=== PATIENT | female | born 1950 | race Caucasian/White ===

== ENCOUNTER 2022-04-24 11:23 | Outpatient (REF) | payer MEDICARE, SELFPAY | END 2022-04-24 11:24 | disposition home or self-care (01) | LOC: HO.MANLDS 11:23 | PROVIDERS: Visit Provider Physician Assistant | DX: Z13.89 Encounter for screening for other disorder (principal) ==

== ENCOUNTER 2023-03-24 15:22 | Outpatient (REF) | payer MEDICARE, SELFPAY ==
[2023-03-25 05:18] LABS: Estimated Average Glucose 157 mg/dL; Hemoglobin A1c % 7.1 %
== END 2023-03-24 15:23 | disposition home or self-care (01) ==
LOC: HO.MANLDS 15:22
PROVIDERS: Visit Provider Internal Medicine
DX: E11.9 Type 2 diabetes mellitus without complications (principal)
CPT/HCPCS: 36415; 83036

== ENCOUNTER 2023-07-21 13:44 | Outpatient (REF) | payer MEDICARE, SELFPAY ==
[2023-07-21 17:34] LABS: Appearance Urine Clear; Color Urine Yellow; Glucose Urine UA 250 mg/dL (Negative); Leukocyte Esterase Urine Large (3+) (Negative); Nitrite Urine Negative (Negative); Specific Gravity - Urine 1.015 (1.005-1.025); UMIC TRIGGER UACC YES; Urine Blood Negative (Negative); Urine Ketones Negative (Negative); Urine Protein Negative (Neg-Trace)
[2023-07-21 17:36] LABS: Bacteria Urine None Seen (None Seen); Hyaline Casts Urine 0-2 /LPF (0-2); RBC Urine 0-2 /HPF (0-2); UACC Culture Trigger YES; WBC Urine 21-50 /HPF (0-5)
== END 2023-07-21 13:45 | disposition home or self-care (01) ==
LOC: HO.MANLDS 13:44
PROVIDERS: Visit Provider Physician Assistant
DX: N39.0 Urinary tract infection, site not specified (principal)
CPT/HCPCS: 81001; 87086

== ENCOUNTER 2024-03-01 16:10 | Outpatient (REF) | payer MEDICARE, SELFPAY | END 2024-03-01 16:11 | disposition home or self-care (01) | LOC: HO.MANLNP 16:10 | PROVIDERS: Visit Provider Physician Assistant | DX: L98.491 Non-pressure chronic ulcer of skin of other sites limited to breakdown of skin (principal) | CPT/HCPCS: 87070; 87077; 87205 ==

== ENCOUNTER 2025-09-19 14:32 | Outpatient (REF) | payer MEDICARE, SELFPAY ==
--- OUTSIDE RECORDS SUMMARY | 2024-05-16 13:00 | XMS_ITS | Encounter Summary ---
Author Organization [facility] Address [address] [place] [address] Phone Care Team Providers Care Principal Programmer Name Role Phone Gage Rivas Primary Care Provider [phone] Gage Rivas DO Unavailable Encounter Details Date Type Department Care Team (Late st Contact Info) Description 05/16/2024 2:00 PM EDT Hospital Encounter [facility] [address] [place] [address] Lydia Andrews FNP [address] [place] [address] [email or web address] Social History Tobacco Use Types Packs/Day Years Used Date Smoking Tobacco: Former Cigarettes Q uit: 1994 Smokeless Tobacco: Never Alcohol Use Standard Drinks/Week Comments Never 0 (1 standard drink = 0.6 oz pur e alcohol) Education Answer Date Recorded Are you interested in more education? Not on angel e 03/12/2023 Are you concerned about learning? Not on file 03/12/2023 No 03/12/2023 No 03/12/2023 Digital Access Answer Date Recorded No 04/12/2023 No 04/12/2023 Reliable internet access at home? Not on file 04/12/2023 Device with a working camera? Not on file Intimate Partner Violence Answer Date R ecorded Are you denied basic needs s uch as food, clothing, or medical care? No 08/22/2025 In the past 12 months have y ou been in a relationship with a person who hurts, threatens, or tries to control you? No 08/22/2025 Are you denied basic needs s uch as food, clothing, or medical care? No 08/22/2025 In the past 12 months have y ou been in a relationship with a person who hurts, threatens, or tries to control you? No 08/22/2025 Comments No Sex and Gender Information Value Date Recorded Sex Assigned at Female 05/29/2020 11:02 AM EDT Legal Sex Female 4:44 PM EST Gender Identity Female 05/29/2020 11:02 AM EDT Sexual Orientation Straight 05/29/2020 11 :02 AM EDT documented as of this encounter Plan of Treatment Upcoming Encounters Date Type Department Care Team ([facility] st Contact Info) Description 10/17/2025 2:15 PM EST Office Visit [facility] [address] [place] [address] Unknown, Unknown, Breanna Lee PA-C [address] [place] [address] [email or web address] documented as of this encounter Procedures Procedure Name Priority Date/Time Associated Diagnosis Comments XR ANKLE 3 OR MORE VIEWS (LEFT) Urgent/patient waiting 05/16/2024 2:05 PM EDT Closed avulsion fracture of lateral malleolus of left fibula, initial encounter documented in this encounter Results * XR ANKLE 3 OR MORE VIEWS (LEFT) (05/16/2024 2:05 PM EDT) Anatomical Region Laterality Modality Ankle Left Computed Radiogr aphy 05/16/2024 2:06 PM EDT Impressions 05/16/2024 2:07 PM EDT Tiny avulsion fracture of the tip of the lateral malleolus with overlying soft tissue swelling. Narrative 05/16/2024 2:07 PM EDT XR ANKLE 3 OR MORE VIEWS (LEFT) Referring clinician's provided indication for this examination in Epic: Trauma; rolled ankle 2 weeks ago, lateral swelling and echymosis, persistent pain COMPARISON: None. FINDINGS: Tiny avulsion fracture of the tip of the lateral malleolus with overlying soft tissue swelling. No other visualized fracture or malalignment. Diffuse osseous demineralization. Preserved joint spaces. Small plantar calcaneal enthesophyte. Procedure Note Sekou Montelongo MD - 05/16/2024 XR ANKLE 3 OR MORE VIEWS (LEFT) Referring clinician's provided indication for this examination in Epic:Trauma; rolled ankle 2 weeks ago, lateral swelling and echymosis,persistent pain COMPARISON: None. FINDINGS: Tiny avulsion fracture of the tip of the lateral malleolus with overlyingsoft tissue swelling. No other visualized fracture or malalignment.Diffuse osseous demineralization. Preserved joint spaces. Small plantarcalcaneal enthesophyte. IMPRESSION: Tiny avulsion fracture of the tip of the lateral malleolus with overlyingsoft tissue swelling. Lydia Andrews LICENSED BONDSMAN IMG XR LOWER EXTREMITY Venus l Result documented in this encounter Visit Diagnoses Not on filedocumented in this encounter Care Teams Principal Programmer Relationship Specialty Start Date End Date Gage Rivas DO PCP - General 08/30/17 Gage Rivas DO Historical LMR Provider 09/05/17 documented as of this encounter Additional Source Comments The information contained in this document represents components of the legal health record. It is not the complete legal health record.[facility]
--- OUTSIDE RECORDS SUMMARY | 2025-09-19 15:29 | XMS_ITS | Encounter Summary ---
Author Organization [facility] Address [address] [place] [address] Phone Care Team Providers Care Monogram And Letter Paster Name Role Phone Gage Rivas DO Primary Care Provider [phone] Gage Rivas DO Unavailable Encounter Details Date Type Department Care Team (Late st Contact Info) Description 09/19/2025 3:29 PM EST Hospital Encounter [facility], X-Ray - Kavitha [address] [place] [address] Gage Rivas DO [address] [facility] [address] [place], [place] [id number] Arrived Social History Tobacco Use Types Packs/Day Years [...] Upcoming Encounters Date Type Department Care Team ([facility] st Contact Info) Description 10/17/2025 2:15 PM EST Office Visit [facility] [address] [place] [address] Unknown, Unknown, Breanna Lee PA-C [address] [place] [address] [email or web address] Pending Results Name Type Priority Associated Diagnoses Date /Time XR Thoracic Spine Imaging Routine Sprain of thoracic region 09/19/2025 3:54 PM EST Scheduled Orders Name Type Priority Associated Diagnoses Orde r Schedule XR Thoracic Spine Imaging Routine Sprain of thoracic region As Needed for 1 Occurrences starting 09/19/2025 until 09/19/2025 documented as of this encounter Visit Diagnoses Diagnosis Sprain of thoracic region documented in this encounter Care Teams Monogram And Letter Paster Relationship Specialty Start Date End Date Gage Rivas DO PCP - General 08/30/17 Gage Rivas DO Historical LMR Provider 09/05/17 documented as of this encounter Additional Source Comments The information contained in this document represents components of the legal health record. It is not the complete legal health record.[facility]
--- OUTSIDE RECORDS SUMMARY | 2025-09-19 17:42 | XMS_ITS | Encounter Summary ---
Author Organization [facility] Address [address] [place] [address] Phone Care Team Providers Care Scallop Dredger Name Role Phone Gage Rivas DO Primary Care Provider [phone] Gage Rivas DO Unavailable Encounter Details Date Type Department Care Team (Late Contact Info) Description 08/04/2022 Procedure Pass [facility] Endoscopy Admitting Dept Virtual Department [address] [place] [address] Social History Tobacco Use Types Packs/Day Years Used Date Smoking Tobacco: Former Smokeless Tobacco: Never Comments:quit 40 years ago Alcohol Use Standard Drinks/Week Comments Never 0 (1 standard drink = 0.6 oz pur e alcohol) Comments No Sex and Gender Information Value Date Recorded Sex Assigned at Female 05/29/2020 11:02 AM EDT Legal Sex Female 4:44 PM EST Gender Identity Female 05/29/2020 11:02 AM EDT Sexual Orientation Straight 05/29/2020 11 :02 AM EDT documented as of this encounter Plan of Treatment Upcoming Encounters Date Type Department Care Team ([facility] Contact Info) Description 10/17/2025 2:15 PM EST Office Visit [facility] [address] [place] [address] Unknown, Unknown, Breanna Lee PA-C [address] [address] documented as of this encounter Visit Diagnoses Not on filedocumented in this encounter Care Teams Scallop Dredger Relationship Specialty Start Date End Date Gage Rivas DO [email or web address] PCP - General 08/30/17 JoseGage vasquez DO [email or web address] Historical LMR Provider 09/05/17 documented as of this encounter Additional Source Comments The information contained in this document represents components of the legal health record. It is not the complete legal health record.[facility]
--- OUTSIDE RECORDS SUMMARY | 2025-09-19 17:42 | XMS_ITS | Encounter Summary ---
Author Organization [facility] Address [address] [place] [address] Phone Care Team Providers Care Weigher And Crusher Name Role Phone JoseGage vasquez Primary Care Provider [phone] Rob Gage Babcock DO Unavailable Ngoc Wilson SENIOR RADIATION PROTECTION TECHNICIAN Unavailable [phone] Richelle Cloud MD Unavailable [phone] Elton Burton MD Unavailable Sherri Yu MD Unavailable [phone] Anna Castillo NP Unavailable [phone] Encounter Details Date Type Department Care Team (Late st Contact Info) Description 03/02/2018 Ancillary Orders [facility], X-Ray - [facility] [address] [place] [address] Mega Ocampo MD [address] [place] [address] [email or web address] Groin pain, right Social History Tobacco Use Types Packs/Day Years Used Date Smoking Tobacco: Never Assessed Comments Unknown Sex and Gender Information Value Date Recorded Sex Assigned at Female 05/29/2020 11:02 AM EDT Legal Sex Female 4:44 PM EST Gender Identity Female 05/29/2020 11:02 AM EDT Sexual Orientation Straight 05/29/2020 11 :02 AM EDT documented as of this encounter Plan of Treatment Upcoming Encounters Date Type Department Care Team (Late st Contact Info) Description 10/17/2025 2:15 PM EST Office Visit [facility] [address] [place] [address] Unknown, Unknown, Breanna Lee PA-C [address] [facility] [address] [place] [address] [email or web address] documented as of this encounter Results * XR PELVIS AP PLUS FROG OR OUTLET 2 VIEWS (03/02/2018 3:29 PM EDT) Anatomical Region Laterality Modality Pelvis Radiographic Kelin ging 03/02/2018 3:46 PM EDT Impressions 03/02/2018 3:48 PM EDT Minor acetabular spurring evident in the hips greater on the left than the right. Slight enthesopathy evident related to greater trochanters and iliac crests bilaterally. The sclerotic changes related to the symphysis pubis bilaterally. S/S: Right hip pain, no injury POS - [id number] Narrative 03/02/2018 3:48 PM EDT COMPARISON: CT abdomen and pelvis September 04, 2014 FINDINGS: An AP film of the pelvis is obtained. There are minimal degenerative changes in the hips with minor superior stable to spurring. No particular calcifications are seen. Enthesopathy is evident. There are surgical clips in the upper pelvis. Sclerotic and cystic change evident along the symphysis pubis noted. No acute fracture or bony displacement is evident. No prevertebral calcifications are seen. There are degenerative changes in the lower lumbar spine. The SI joints are unremarkable. Procedure Note Nico Burr MD - 03/02/2018 COMPARISON: CT abdomen and pelvis September 04, 2014 FINDINGS: An AP film of the pelvis is obtained. There are minimal degenerative changes in the hips with minor superiorstable to spurring. No particular calcifications are seen. Enthesopathy is evident. There are surgical clips in the upper pelvis. Sclerotic and cystic change evident along the symphysis pubis noted. No acute fracture or bony displacement is evident. No prevertebral calcifications are seen. There are degenerative changes in the lower lumbar spine. The SI joints are unremarkable. IMPRESSION: Minor acetabular spurring evident in the hips greater on the left than theright. Slight enthesopathy evident related to greater trochanters andiliac crests bilaterally. The sclerotic changes related to the symphysispubis bilaterally. S/S: Right hip pain, no injury POS - [id number] Mega Ocampo MD IMG XR PELVIS Final Res ult documented in this encounter Visit Diagnoses Diagnosis Groin pain, right Groin pain, right documented in this encounter Care Teams Weigher And Crusher Relationship Specialty Start Date End Date Gage Rivas DO PCP - General 08/30/17 Gage Rivas DO Historical LMR Provider 09/05/17 Ngoc Wilson NP [address] [place] [address] [email or web address] Historical LMR Provider 09/05/17 2 Richelle Cloud MD [address] [place] [address], [address] [place] [address] Historical LMR Provider 09/05/17 Elton Burton MD [address] [place] [address] [place] [address] Historical LMR Provider 09/05/17 11/22/21 Sherri Yu MD [address] [place] [address] Historical LMR Provider 09/05/17 2 Anna Castillo NP [address] [place] [address] Historical LMR Provider 09/05/17 2 documented as of this encounter Additional Source Comments The information contained in this document represents components of the legal health record. It is not the complete legal health record.[facility]
--- OUTSIDE RECORDS SUMMARY | 2025-09-19 17:42 | XMS_ITS | Encounter Summary ---
Author Organization [facility] Address [address] [place] [address] Phone Care Team Providers Care Deputy K 9 Name Role Phone JoseGage vasquez Yoko PIERRE Primary Care Provider [phone] Gage Rivas DO Unavailable Ngoc Wilson LEGAL RESEARCH ANALYST Unavailable Richelle Cloud MD Unavailable [phone] Elton Burton MD Unavailable [phone] Sherri Yu MD Unavailable [phone] Anna Castillo NP Unavailable [phone] Reason for Referral * MRI/CAT Scan - Closed Specialty Diagnoses / Procedures Referred By Tal davis Referred To Contact Radiology Diagnoses Personal history of colonic polyps Constipation, slow transit Diverticulosis large intestine w/o perforation or abscess w/o bleeding Lower abdominal pain, unspecified Nausea Procedures CT Abdomen/Pelvis Breanna Esparza PA Phone: tel: fax: Referral ID Status Reason Start Date Expiration Date Visits Re quested Visits Authorized [id number] Closed 09/26/2020 09/26/2021 1 1 Encounter Details Date Type Department Care Team (Latest Contact Info) Description 09/26/2020 Transcribe Orders [facility] Department [address] [place] [address] Breanna Esparza PA 10 [place] [address] Personal history of colonic polyps (Primary Dx); Constipation, slow transit; Diverticulosis large intestine w/o perforation or abscess w/o bleeding; Lower abdominal pain, unspecified; Nausea Social History Tobacco Use Types Packs/Day Years [...] Description 10/17/2025 2:15 PM EST Office Visit [facility] 10 [place] [address] Unknown, Unknown, Breanna Lee, YUDY-C [address] [place] [address] [email or web address] documented as of this encounter Results * CT ABDOMEN/PELVIS WITH CONTRAST (10/03/2020 3:06 PM EST) Anatomical Region Laterality Modality Abdomen, Pelvis Computed Tomogra phy 10/03/2020 3:46 PM EST Impressions 10/03/2020 4:03 PM EST No acute inflammatory changes or specific source of the pain. Diverticulosis without evidence of diverticulitis. Stable left adrenal nodule. Hysterectomy, partial colectomy and cholecystectomy. Small hiatal hernia. Moderate gastric diverticulum. Renal and hepatic cysts. Status post cholecystectomy. Narrative 10/03/2020 4:03 PM EST HISTORY: Abdominal pain, diverticulosis, nausea and vomiting COMPARISON: September 04, 2014 TECHNIQUE: After the administration of oral and intravenous contrast, multidetector CT is obtained from dome of the liver through the inferior pubic rami. Sagittal and coronal reformats generated. Automated exposure control utilized. FINDINGS: Lung bases: Mild elevation left hemidiaphragm. No pleural or pericardial effusion. Liver and spleen: Small cyst or hemangioma in the left hepatic lobe again noted. No worrisome hepatic or splenic masses. No organomegaly. Biliary tree and pancreas: Status post cholecystectomy. No biliary dilatation of concern. No pancreatic finding of concern. Adrenals and : Small upper lateral limb nodule in the left adrenal is unchanged. No worrisome adrenal masses. Lower pole left renal cyst now present, change from prior. No suspicious features by CT. This measures approximately 1.5 cm. Exophytic cyst off the lower pole of the right kidney also noted. No stones seen. Bladder unremarkable. Patient is status-post hysterectomy. There is some low density near the upper margin of the right vaginal fornix which is essentially unchanged and may be a right, chronic in nature. What is probably left ovary or post-operative change seen near the left vaginal fornix, also unchanged. Multiple calcifications in that region as well representing phleboliths and other calcification. Bowel: There is a small hiatal hernia. There is a fairly prominent gastric diverticulum again noted near the fundus posteriorly. No duodenal finding concern. Terminal ileum unremarkable. Appendix not visualized but no findings of appendicitis. There is colonic diverticulosis fairly diffusely of mild to moderate degree. Postsurgical changes seen at the sigmoid. No evidence of diverticulitis or colitis. Nodes: No adenopathy detected. Vascular: Moderate atherosclerotic changes. No findings of concern. Soft tissues: No ascites, inflammatory change or fluid collection. Bones: Scoliosis convex left. Mild disc height loss at multiple levels with some early facet degenerative change. No compression deformity or bony destructive lesions identified. Sclerosis across the symphysis pubis. Procedure Note Babak Vaughn MD - 10/03/2020 HISTORY: Abdominal pain, diverticulosis, nausea and vomiting COMPARISON: September 04, 2014 TECHNIQUE: After the administration of oral and intravenous contrast,multidetector CT is obtained from dome of the liver through the inferiorpubic rami. Sagittal and coronal reformats generated. Automated exposurecontrol utilized. FINDINGS: Lung bases: Mild elevation left hemidiaphragm. No pleural or pericardialeffusion. Liver and spleen: Small cyst or hemangioma in the left hepatic lobe againnoted. No worrisome hepatic or splenic masses. No organomegaly. Biliary tree and pancreas: Status post cholecystectomy. No biliarydilatation of concern. No pancreatic finding of concern. Adrenals and : Small upper lateral limb nodule in the left adrenal isunchanged. No worrisome adrenal masses. Lower pole left renal cyst nowpresent, change from prior. No suspicious features by CT. This measuresapproximately 1.5 cm. Exophytic cyst off the lower pole of the rightkidney also noted. No stones seen. Bladder unremarkable. Patient isstatus-post hysterectomy. There is some low density near the upper marginof the right vaginal fornix which is essentially unchanged and may be aright, chronic in nature. What is probably left ovary or post-operativechange seen near the left vaginal fornix, also unchanged. Multiplecalcifications in that region as well representing phleboliths and othercalcification. Bowel: There is a small hiatal hernia. There is a fairly prominent gastricdiverticulum again noted near the fundus posteriorly. No duodenal findingconcern. Terminal ileum unremarkable. Appendix not visualized but nofindings of appendicitis. There is colonic diverticulosis fairly diffuselyof mild to moderate degree. Postsurgical changes seen at the sigmoid. Noevidence of diverticulitis or colitis. Nodes: No adenopathy detected. Vascular: Moderate atherosclerotic changes. No findings of concern. Soft tissues: No ascites, inflammatory change or fluid collection. Bones: Scoliosis convex left. Mild disc height loss at multiple levelswith some early facet degenerative change. No compression deformity orbony destructive lesions identified. Sclerosis across the symphysispubis. IMPRESSION: No acute inflammatory changes or specific source of the pain.Diverticulosis without evidence of diverticulitis. Stable left adrenalnodule. Hysterectomy, partial colectomy and cholecystectomy. Small hiatalhernia. Moderate gastric diverticulum. Renal and hepatic cysts. Statuspost cholecystectomy. us Breanna JIMENES IMG CT ABD/PELVIS Final Res ult documented in this encounter Visit Diagnoses Diagnosis Personal history of colonic polyps- Primary Constipation, slow transit Slow transit constipation Diverticulosis large intestine w/o perforation or abscess w/o bleeding Lower abdominal pain, unspecified Nausea Nausea alone Personal history of colonic polyps Constipation, slow transit Slow transit constipation Diverticulosis large intestine w/o perforation or abscess w/o bleeding Lower abdominal pain, unspecified Nausea Nausea alone documented in this encounter Care Teams Deputy K 9 Relationship Specialty Start Date End Date Gage Rivas DO PCP - General 08/30/17 Gage Rivas DO Historical LMR Provider 09/05/17 Ngoc Wilson LEGAL RESEARCH ANALYST [address] [place] [address] [email or web address] Historical LMR Provider 09/05/17 2 Richelle Cloud MD [address] [address] Historical LMR Provider 09/05/17 Elton Burton MD 14 [facility] [address] [place] [address] Historical LMR Provider 09/05/17 11/22/21 Sherri Yu MD [address] [place] [id number] Historical LMR Provider 09/05/17 2 Anna Castillo NP [address] [place] [address] Historical LMR Provider 09/05/17 2 documented as of this encounter Additional Source Comments The information contained in this document represents components of the legal health record. It is not the complete legal health record.[facility]
--- OUTSIDE RECORDS SUMMARY | 2025-09-19 17:42 | XMS_ITS | Encounter Summary ---
Author Organization [facility] Address [address] [facility] [address] [place] [address] Phone Care Team Providers Care Center Machine Operator Name Role Phone JoseGage vasquez Primary Care Provider [phone] Gage Rivas DO Unavailable Ngoc Wilson NP Unavailable Richelle Cloud MD Unavailable Elton Burton MD Unavailable [phone] Sherri Yu MD Unavailable [phone] Anna Castillo NP Unavailable Encounter Details Date Type Department Care Team (Late Contact Info) Description 09/11/2020 Procedure Pass [facility] Endoscopy Admitting Dept Virtual Department [address] [place] [id number] Social History Tobacco Use Types Packs/Day Years [...] Encounters Date Type Department Care Team (Late Contact Info) Description 10/17/2025 2:15 PM EST Office Visit [facility] 10 [place] [address] Unknown, Unknown, Breanna Lee PA-C [address] [address] documented as of this encounter Visit Diagnoses Not on filedocumented in this encounter Care Teams Center Machine Operator Relationship Specialty Start Date End Date Gage Rivas DO PCP - General 08/30/17 Gage Rivas DO Historical LMR Provider 09/05/17 Ngoc Wilson NP [address] [place] [address] [email or web address] Historical LMR Provider 09/05/17 2 Richelle Cloud MD [address] [place] [address], [address] [place] [address] Historical LMR Provider 09/05/17 Elton Burton MD 14 [facility] [address] [place] [address] Historical LMR Provider 09/05/17 11/22/21 Sherri Yu MD [address] [place] [address] Historical LMR Provider 09/05/17 2 Anna Castillo NP [address] [place] [address] Historical LMR Provider 09/05/17 2 documented as of this encounter Additional Source Comments The information contained in this document represents components of the legal health record. It is not the complete legal health record.[facility]
--- OUTSIDE RECORDS SUMMARY | 2025-09-19 17:42 | XMS_ITS | Encounter Summary ---
Author Organization [facility] Address [address] [place] [address] Phone Care Team Providers Care Director Business Systems Name Role Phone Gage Rivas DO Primary Care Provider [phone] Gage Rivas DO Unavailable Encounter Details Date Type Department Care Team (Late st Contact Info) Description 09/19/2025 Ancillary Orders [facility], X-Ray - [place] [place] [address] Gage Rivas DO [address] [place] [address] [email or web address] Sprain of thoracic region (Primary Dx) Social History Tobacco Use Types Packs/Day Years [...] Upcoming Encounters Date Type Department Care Team ([facility] st Contact Info) Description 10/17/2025 2:15 PM EST Office Visit [facility] [address] [place] [address] Unknown, Unknown, Breanna Lee PA-C [address] [place] [address] [email or web address] Pending Results Name Type Priority Associated Diagnoses Date /Time XR Thoracic Spine Imaging Routine Sprain of thoracic region 09/19/2025 3:54 PM EST Scheduled Orders Name Type Priority Associated Diagnoses Orde r Schedule XR Thoracic Spine Imaging Routine Sprain of thoracic region Expected: 09/19/2025, Expires: 12/20/2025 documented as of this encounter Visit Diagnoses Diagnosis Sprain of thoracic region- Primary documented in this encounter Care Teams Director Business Systems Relationship Specialty Start Date End Date Gage Rivas DO PCP - General 08/30/17 Gage Rivas DO Historical LMR Provider 09/05/17 documented as of this encounter Additional Source Comments The information contained in this document represents components of the legal health record. It is not the complete legal health record.[facility]
--- OUTSIDE RECORDS SUMMARY | 2025-09-19 17:42 | XMS_ITS | Clinical Summary ---
Author Organization [facility] Address [address] [place] [address] Phone Care Team Providers Care Foundry Engineer Name Role Phone Rob, Analia A DO Primary Care Provider [phone] Bigda, Analia A DO Unavailable Allergies Active Allergy Reactions Criticality Noted Date Comments House Dust Mite Sneezing Medium 09/10/2020 Metformin Nausea Only Low 01/16/2020 Morphine 02/03/2019 Abdominal pain Sulfa (Sulfonamide Antibiotics) Hives Low 01/14 Medications dicyclomine (BENTYL) 10 MG capsule daily as needed. Act clark ALPRAZolam (XANAX) 1 MG tablet Take 1 mg by mouth 3 (three) times a day as needed. 020 Active cyclobenzaprine (FLEXERIL) 5 MG tablet Take 1 tablet (5 mg total) by mouth nightly at bedtime as needed (muscle spasm). 5 tablet 021 Active amLODIPine (NORVASC) 10 MG tablet 022 Active carvedilol (COREG) 12.5 MG tablet carvedilol 12.5 mg tablet Active blood-glucose meter (FREESTYLE FREEDOM LITE) kit FreeStyle Cornell Lite kit USE DIRECTED. Active lancets (FREESTYLE) 28 gauge Misc FreeStyle Lancets 28 gauge test once a day e11;65 Active FREESTYLE FREEDOM LITE meter kit as directed. 023 Active HYDROcodone-nahun taminophen (NORCO) 5-325 mg per tablet 07/03/2 023 Active SITagliptin phosphate (JANUVIA) 100 MG tablet Januvia 100 mg tablet TAKE 1 TABLET BY MOUTH EVERY DAY Active omeprazole (PRILOSEC) 40 MG capsule Active PREDNISONE ORAL Take 8 mg by mouth daily. Active predniSONE (DELTASONE) 10 MG tablet Active MOUNJARO 5 mg/0.5 mL PnIj INJECT 0.5 ML SUBCUTANEOUSLY WEEKLY Active glipiZIDE (GLUCOTROL XL) 10 MG 24 hr tablet Take 1 tablet by mouth daily. Active predniSONE (DELTASONE) 1 MG tablet TAKE 4 TABLETS BY MOUTH EVERY DAY FOR 30 DAYS Active ondansetron (ZOFRAN) 4 MG tablet Take 4 mg by mouth daily with breakfast. Once a day for 30 D - Active diclofenac sodium (VOLTAREN) 75 MG EC tablet Take 75 mg by mouth 2 (two) times a day with meals. Active azelastine (ASTELIN) 137 mcg (0.1 %) nasal spray by Nasal route 2 (two) times a day. Active doxepin (SILENOR) 6 mg tablet Take 1 tablet by mouth every morning. Active fluticasone propionate (FLONASE) 50 mcg/actuation nasal spray by Nasal route daily. Active montelukast (SINGULAIR) 10 mg tablet Take 1 tablet by mouth every morning. Active eszopiclone (LUNESTA) 3 mg tablet Take 3 mg by mouth nightly at bedtime. Active ibuprofen (ADVIL,MOTRIN) 600 MG tablet every 8 (eight) hours as needed. 2024 Discontinued magnesium citrate solution 2024 Discontinued oxyCODONE 5 MG immediate release tablet Take 1 tablet (5 mg total) by mouth every 6 (six) hours as needed. Partial fill ok 20 tablet 2024 Discontinued mirtazapine (REMERON) 15 MG tablet 2024 Discontinued rosuvastatin (CRESTOR) 5 MG tablet Take 1 tablet by mouth every morning. 2024 Discontinued semaglutide (OZEMPIC) 0.25 mg or 0.5 mg(2 mg/1.5 mL) subcutaneous injection pen 2024 Discontinued glimepiride (AMARYL) 4 MG tablet Take 1 tablet by mouth 2 (two) times a day. 023 2024 Discontinued zolpidem (AMBIEN) 10 mg tablet 2024 Discontinued traZODone (DESYREL) 100 MG tablet 2024 Discontinued eszopiclone (LUNESTA) 2 MG Tab Take 2 mg by mouth nightly at bedtime. 2024 Discontinued Active Problems No known active problems Encounters Date Type Department Care Team Description 09/19/2025 3:29 PM EST Hospital Encounter [facility], X-Ray - [address] [place] [address] Analia Patel DO Arrived 09/19/2025 Ancillary Orders [facility], X-Ray - [address] [place] [address] Analia Patel DO Sprain of thoracic region (Primary Dx) 08/22/2025 11:30 AM EDT - 08/22/2025 11:45 AM EDT Surgery [facility] Endoscopy Admitting Dept Virtual Department [address] [place] [phone] Juventino Thomas MD COLONOSCOPY 08/22/2025 11:03 AM EDT Anesthesia Event [facility] Endoscopy Admitting Dept Virtual Department [address] [place] [address] Tonya Swanson MD 08/22/2025 9:56 AM EDT - 08/22/2025 11:44 AM EDT Hospital Encounter [facility] Endoscopy Admitting Dept Virtual Department [address] [place] [address] Juventino Thomas MD Discharge Disposition: Home or Self Care 08/22/2025 Procedure Pass [facility] Endoscopy Admitting Dept Virtual Department [address] [place] [address] 08/15/2025 9:00 AM EDT Pre-Admission Testing Pre Procedure Evaluation [address] [place] [address] Juventino Thomas MD 07/05/2025 1:54 PM EDT - 07/05/2025 11:59 PM EDT Hospital Encounter [facility] [address] [place] [address] Analia Patel, DO Discharge Disposition: Home or Self Care 07/05/2025 Transcribe Orders [facility] [address] [place] [address] Analia Patel, DO Mixed hyperlipidemia (Primary Dx) from Last 3 Months Family History Medical History Relation Comments Breast cancer Mother Relation Status Comments Mother Social History Tobacco Use Types Packs/Day Years Used Date Smoking Tobacco: Former Cigarettes Q uit: 1994 Smokeless Tobacco: Never Tobacco Cessation:Counseling Given: Not Answered Alcohol Use Standard Drinks/Week Comments Never 0 [...] Orientation Straight 05/29/2020 11 :02 AM EDT Last Filed Vital Signs Vital Sign Reading Time Taken Comments Blood Pressure 136/70 08/22/2025 11:35 AM EDT Pulse 76 08/22/2025 11:35 AM EDT Temperature 36 C (96.8 F) 08/22/2025 11:20 AM EDT Respiratory Rate 17 08/22/2025 11:35 AM EDT Oxygen Saturation 97% 08/22/2025 11:35 AM EDT Inhaled Oxygen Concentration - - Weight 60.8 kg (134 lb) 08/15/2025 11:13 AM EDT Height 154.9 cm (5' 1 ) 08/15/2025 11:13 AM EDT Body Mass Index 25.32 08/15/2025 11:13 AM EDT Plan of Treatment Upcoming Encounters Date Type Department Care Team ([facility] st Contact Info) Description 10/17/2025 2:15 PM EST Office Visit [facility] [address] [place] [address] Unknown, Unknown, Breanna Lee PA-C [address] [place] [address] [email or web address] Health Maintenance Due Date Last Done Comments Adult Td,Tdap Booster 1950 DEPRESSION SCREENING 1960 HEPATITIS C SCREENING 1966 COLOGUARD 1993 FIT TEST 1993 FOBT 1993 SIGMOIDOSCOPY 1993 VIRTUAL COLONOSCOPY 1993 ZOSTER VACCINES (2 of 3) 06/06/2013 04/11/2013 OSTEOPOROSIS SCREENING INITIAL (ONE-TIME) 2013 DIABETIC EYE EXAM 12/24/2017 URINE MICROALBUMIN/CREATININE RATIO 11/03/2022 11/03/2021, 12/13/2019, 10/27/2018 INFLUENZA VACCINE (#1) 2025 , 09/20/2023, 08/27/2022, Additional history exists COVID-19 VACCINE ( season) 2025 09/11/2022, 09/11/2022, 11/05/2021, Additional history exists BLOOD PRESSURE 08/01/2025 01/29/2025 HEMOGLOBIN A1C 12/06/2025 06/05/2025, 05/0 04/2025, 12/07/2024, Additional history exists LIPID PANEL 07/05/2026 07/05/2025, 09/2 01/2022, 11/03/2021, Additional history exists SMOKING Hx and SMOKELESS TOBACCO SCREENING 08/22/2026 08/22/2025 COLONOSCOPY 08/22/2035 08/22/2025, 09/11/2020 COLORECTAL CANCER SCREENING 08/22/2035 PNEUMOCOCCAL VACCINES (50+ years) Completed 08/16/2018, 09/16/2016, 09/18/2009 RSV VACCINE Completed 09/20/2023 HEPATITIS A VACCINES Aged Out No long er eligible based on patient's age to complete this topic HIB VACCINES Aged Out No longer eligi ble based on patient's age to complete this topic MENINGOCOCCAL VACCINES (ACWY) Aged Out No longer eligible based on patient's age to complete this topic MENINGOCOCCAL VACCINES (B) Aged Out N o longer eligible based on patient's age to complete this topic Medical Devices Not on file Procedures Procedure Name Priority Date/Time Associated Diagnosis Comments MA COLSC FLX W/RMVL OF TUMOR POLYP LESION SNARE TQ 08/22/2025 11:02 AM EDT Diverticulosis Special Needs Wheelchair [id number] MA COLONOSCOPY W/BIOPSY SINGLE/MULTIPLE 08/22/2025 11:02 AM EDT Diverticulosis Special Needs Wheelchair [id number] MA COLONOSCOPY FLX DX W/COLLJ SPEC WHEN PFRMD 08/22/2025 11:02 AM EDT Diverticulosis Special Needs Wheelchair [id number] ENDOSCOPY, COLON 08/22/2025 10:57 AM EDT POCT GLUCOSE Routine 08/22/2025 10:30 AM EDT DIRECT LDL Routine 07/05/2025 2:00 PM EDT LIPID PANEL Routine 07/05/2025 2:00 PM EDT Mixed hyperlipidemia COMPREHENSIVE METABOLIC PANEL (CMP) Routine 07/05/2025 2:00 PM EDT Mixed hyperlipidemia CBC AND DIFFERENTIAL Routine 07/05/2025 2:00 PM EDT Mixed hyperlipidemia HEMOGLOBIN A1C Routine 06/05/2025 3:13 PM EDT Polymyalgia rheumatica MICROALBUMIN/CREATIN INE RATIO, RANDOM URINE Routine 11/03/2021 2:09 PM EST Polymyalgia Diabetes mellitus without complication from Last 3 Months or Most Recently Relevant to Health Maintenance Results * ENDOSCOPY, COLON (08/22/2025 10:57 AM EDT) Narrative Transcriptions Juventino Thomas MD - 08/22/2025 10:57 AM EDT [facility] Patient Name: Xuan [facility] Neal Attending MD:: JUVENTINO THOMAS MD, , Procedure Date: 08/22/2025 10:57 AM Date of : 1950 Age: 74 Admit Type: Outpatient Gender: Female Room: [place] [address] Referring MD: ANALIA PATEL DO Exam Type: Colonoscopy Indications: High risk colon cancer surveillance: Personalhistory of colonic polyps Medications: Monitored Anesthesia Care Procedure: Informed consent was obtained from the patientafter discussion of the indications, limitations, alternatives, benefits, and risks of the procedure. Risks specifically discussed include but are not limited to medication reactions, missed lesions, bleeding, perforation, or the need for emergent surgery. Throughout the procedure, the patient's blood pressure, pulse, end-tidal CO2, and oxygensaturations were monitored continuously. The Olympus adult variable colonoscope [id number] #3 was introduced through the anus and advanced to the cecum, identified by appendiceal orifice andileocecal valve. The colonoscopy was performed without difficulty. The patient tolerated the procedurewell. The quality of the bowel preparation was excellent. The quality of the bowel preparation was evaluated using the BBPS ([place] Bowel Preparation Scale)with scores of: Right Colon = 3, Transverse Colon = 3and Left Colon = 3 (entire mucosa seen well with no residual staining, small fragments of stool oropaque liquid). The total BBPS score equals 9. Anatomical landmarks were photographed. Complications: No immediate complications. Estimated blood loss:None. Findings: The perianal and digital rectal examinations were normal. Scattered small and large-mouthed diverticula were found in the sigmoid colon and descending colon. There was evidence of a prior njs-jm-wyzaphym-colonic anastomosis in the sigmoid colon. This was patentand was characterized by healthy appearing mucosa. The exam was otherwise normal throughout theexamined colon. Impression: - Moderate diverticulosis in the sigmoid colon andin the descending colon. - Patent end-to-side colo-colonic anastomosis, characterized by healthy appearing mucosa. - No specimens collected. Recommendation: - Discharge patient to home. - No further colonoscopies recommended given patient age, no historyof colonic polyps and no family history of colon cancer. JUVENTINO THOMAS MD, 08/22/2025 11:18:06 AM This report has been signed electronically. Number of Addenda: 0 Note Initiated On: 08/22/2025 10:57 AM Procedure Code(s): --- Professional --- 52611, Colonoscopy, flexible; diagnostic, including collection of specimen(s) by brushing or washing, when performed (separateprocedure) --- Technical --- 14808, Colonoscopy, flexible; diagnostic, including collection of specimen(s) by brushing or washing, when performed (separateprocedure) Diagnosis Code(s): --- Professional --- Z86.010, Personal history of colonic polyps Z98.0, Intestinal bypass and anastomosis status K57.30, Diverticulosis of large intestine without perforation or abscess without bleeding --- Technical --- Z86.010, Personal history of colonic polyps Z98.0, Intestinal bypass and anastomosis status K57.30, Diverticulosis of large intestine without perforation or abscess without bleeding CPT copyright 2021 [employer]. All rights reserved. The codes documented in this report are preliminary and upon librarian head reviewmay be revised to meet current compliance requirements. Procedure Date: 08/22/2025 10:57:[address] [place] [address] [place] Analia A Bigda DO GI PROCEDURE ORDERABLES Final Re sult * (ABNORMAL) POCT Glucose (08/22/2025 10:30 AM EDT) Glucose, POCT 216(H) 70 - 100 mg/dL [facility] 08/22/2025 10:3 0 AM EDT 08/22/2025 10:32 AM EDT us Juventino Thomas MD POINT OF CARE TEST ORDERABLES Fi nal Result Performing Organization Address [facility]/ZIP Co de Phone Number [address] [address] * (ABNORMAL) DIRECT LDL (07/05/2025 2:00 PM EDT) Direct LDL 158(H) <100 mg/dL [facility] Comment: (NOTE) Greatly elevated Triglycerides values (>1200 mg/dL) interfere with the dLDL assay. Desirable range <100 mg/dL for primary prevention; <70 mg/dL for patients with CHD or diabetic patients with > or = 2 CHD risk factors. 07/05/2025 2:00 PM EDT 07/05/2025 2:09 PM EDT us Analia A Bigda DO LAB BLOOD BKR ORDERABLES Final R esult Performing Organization Address City/[facility]/ZIP Co de Phone Number [facility] [address] [address]UST * (ABNORMAL) Comprehensive metabolic panel (07/05/2025 2:00 PM EDT) SODIUM 135 133 - 146 mmol/L [facility] POTASSIUM 4.6 3.3 - 5.1 mmol/L [facility] CHLORIDE 100 96 - 108 mmol/L [facility] CO2 21 21 - 35 mmol/L [facility] BUN 16 6 - 19 mg/dL [facility] CREATININE 1.00 0.5 - 1.5 mg/dL [facility] GLUCOSE 255(H) 70 - 99 mg/dL [facility] ALBUMIN 4.0 3.9 - 4.8 g/dL [facility] TOTAL PROTEIN 6.4(L) 6.5 - 8.0 g/dL [facility] CALCIUM 9.4 8.4 - 10.3 mg/dL [facility] ALKALINE PHOSPHATASE 70 39 - 117 U/L [facility] TOTAL BILIRUBIN 0.3 0.0 - 1.2 mg/dL [facility] AST 10 0 - 37 U/L [facility] ALT 9 0 - 40 U/L [facility] GLOBULIN 2.4 1 - 4.8 g/dL [facility] EGFR 58(L) >59 mL/min/1.7 3m2 [facility] Comment:Estimated glomerular filtration rate calculated using the CKD-EPI refit equation. ANION GAP 19 10 - 20 mmol/L [facility] Blood 07/05/2025 2:00 PM EDT 07/05/2025 2:09 PM EDT us Analia Patel DO LAB BLOOD BKR ORDERABLES Final R esult [facility] [address] [place] [address] * (ABNORMAL) CBC and differential (07/05/2025 2:00 PM EDT) WBC 10.50 4.00 - 11.00 K/uL [facility] RBC 3.65(L) 4.00 - 5.20 M/uL [facility] HGB 10.8(L) 12.0 - 16.0 g/dL [facility] HCT 33.3(L) 36.0 - 46.0 % [facility] PLT 340 150 - 450 K/uL [facility] MCV 91.2 80.0 - 100.0 fL [facility] MCH 29.6 27.0 - 31.0 pg [facility] MCHC 32.4 32.0 - 36.0 g/dL [facility] RDW 14.8(H) 11.5 - 14.5 % [facility] MPV 10.2 8.4 - 12.0 fL [facility] NRBC 0.00 0.00 /100 WBCs [facility] ABSOLUTE NRBC 0.00 0.00 K/uL [facility] DIFF METHOD Auto [facility] NEUTS 81.5(H) 48.0 - 76.0 % [facility] LYMPHS 10.7(L) 18.0 - 41.0 % [facility] MONOS 6.2 4.0 - 11.0 % [facility] EOS 0.5 0.0 - 5.0 % [facility] BASOS 0.3 0.0 - 1.5 % [facility] Granulocytes, immature (%) 0.8 0.0 - 0.9 % [facility] ABSOLUTE NEUTS 8.57(H) 1.92 - 7.60 K/uL [facility] ABSOLUTE LYMPHS 1.12 0.72 - 4.10 K/uL [facility] ABSOLUTE MONOS 0.65 0.16 - 1.10 K/uL [facility] ABSOLUTE EOS 0.05 0.00 - 0.50 K/uL [facility] ABSOLUTE BASOS 0.03 0.00 - 0.15 K/uL [facility] Granulocytes, immature 0.08 0.00 - 0.09 K/uL [facility] Blood 07/05/2025 2:00 PM EDT 07/05/2025 2:09 PM EDT us Analia A Bigda DO LAB BLOOD BKR ORDERABLES Final R esult [facility] [address] [place] [address] * (ABNORMAL) Lipid panel (07/05/2025 2:00 PM EDT) HDL 44 mg/dL [facility] Comment: Interpretation <40 mg/dL: Low HDL cholesterol (major risk factor for CHD) Greater than or equal to 60 mg/dL: High HDL cholesterol ( negative risk factor for CHD) HDL - cholesterol is affected by a number of factors, e.g. smoking, excerise, hormones, sex and age. CHOLESTEROL 282(H) 0 - 240 mg/dL [facility] TRIGLYCERIDES 446(H) 30 - 160 mg/dL [facility] LDL NOT CALCULATED 50 - 129 mg/dL [facility] Comment: Unable to calculate due to elevated TRIG of greater than 400. A measured LDL will be performed. CARDIAC RISK RATIO 6.4(H) 3.3 - 4.4 [facility] Blood 07/05/2025 2:00 PM EDT 07/05/2025 2:09 PM EDT us Analia A Bigda DO LAB BLOOD BKR ORDERABLES Final R esult Performing Organization Address City/[facility]/ZIP Co de Phone Number [address] [address] * (ABNORMAL) Hemoglobin A1c (06/05/2025 3:13 PM EDT) HEMOGLOBIN A1C 7.7(H) 4.3 - 5.8 % [facility] Blood 06/05/2025 3:13 PM EDT 06/05/2025 3:15 PM EDT us Analia A Bigda DO LAB BLOOD BKR ORDERABLES Final R esult [address] [address] * Microalbumin/creatinine ratio, random urine (11/03/2021 2:09 PM EST) URINE MICROALBUMIN <1.2 0 - 2.3 mg/dL [facility] URINE CREATININE 27 mg/dL PATIENT CONSUMER MARKETER [facility] MICROALB/CRE RATIO NOT CALCULATED 0 - 20 mg/g Cre [facility] Comment:due to Microalbumin <1.2 Urine (Urine) 11/03/2021 2:0 9 PM EST 11/03/2021 2:13 PM EST us Analia A Bigda DO LAB URINE ORDERABLES Final Resul t Performing Organization Address City/State/[facility] Co de Phone Number [facility] [address] [place] [address] from Last 3 Months or Most Recently Relevant to Health Maintenance Insurance MEDICARE PART A & B [facility] MEDICARE PART A & B B MEDICARE PART A & B MEDICARE PART A & B MEDICARE PART A & B [id number] [place] [address] MEDICARE PART A & B [place] MEDICARE PART A & [address] [place], [place] [id number] [facility] Care Teams Foundry Engineer Relationship Specialty Start Date End Date Analia Patel DO PCP - General 08/30/17 Analia Patel DO Historical LMR Provider 09/05/17 Additional Source Comments The information contained in this document represents components of the legal health record. It is not the complete legal health record.[facility]
--- OUTSIDE RECORDS SUMMARY | 2025-09-19 17:42 | XMS_ITS | Encounter Summary ---
Author Organization [facility] Address [address] [place] [address] Phone Care Team Providers Care Dehydrator Tender Name Role Phone Josechristina Gage Babcock DO Primary Care Provider [phone] Gage Rivas DO Unavailable Ngoc Wilson NP Unavailable Richelle Cloud MD Unavailable [phone] Elton Burton MD Unavailable Sherri Yu MD Unavailable [phone] Anna Castillo NP Unavailable [phone] Encounter Details Date Type Department Care Team (Late st Contact Info) Description 12/19/2019 Procedure Pass [facility], [address] [address] Social History Tobacco Use Types Packs/Day Years [...] AM EDT documented as of this encounter Last Filed Vital Signs Vital Sign Reading Time Taken Comments Blood Pressure - - Pulse - - Temperature - - Respiratory Rate - - Oxygen Saturation - - Inhaled Oxygen Concentration - - Weight 68 kg (150 lb) 12/21/2019 11:13 AM EST Height 154.9 cm (5' 1 ) 12/21/2019 11:13 AM EST Body Mass Index 28.34 12/21/2019 11:13 AM EST documented in this encounter Plan of Treatment Upcoming Encounters Date Type Department Care Team (Late st Contact Info) Description 10/17/2025 2:15 PM EST Office Visit [facility] [address] [place] [address] Unknown, Unknown, Breanna Lee PA-C [address] [address] documented as of this encounter Visit Diagnoses Not on filedocumented in this encounter Care Teams Dehydrator Tender Relationship Specialty Start Date End Date Gage Rivas DO PCP - General 08/30/17 Gage Rivas DO Historical LMR Provider 09/05/17 Ngoc Wilson NP [address] [place] [id number] [email or web address] Historical LMR Provider 09/05/17 2 Richelle Cloud MD [address] [place] [address], [address] [place] [address] Historical LMR Provider 09/05/17 Elton Burton MD [address] [place] [address] [address] [place] [address] [email or web address] Historical LMR Provider 09/05/17 11/22/21 Sherri Yu MD [address] [place] [phone] Historical LMR Provider 09/05/17 2 Anna Castillo NP [address] [place] [id number] Historical LMR Provider 09/05/17 2 documented as of this encounter Additional Source Comments The information contained in this document represents components of the legal health record. It is not the complete legal health record.[facility]
--- OUTSIDE RECORDS SUMMARY | 2025-09-19 17:42 | XMS_ITS | Encounter Summary ---
Author Organization [facility] Address [address] [facility] [address] [place] [address] Phone Care Team Providers Care Parachute Folder Name Role Phone Gage Rivas Primary Care Provider [phone] JoseGage vasquez DO Unavailable Encounter Details Date Type Department Care Team ([facility] Contact Info) Description 05/20/2023 Procedure Pass [facility], [address] [address] Social History Tobacco Use Types Packs/Day Years [...] with a working camera? Not on file Comments No Sex and Gender Information Value Date Recorded Sex Assigned at Female 05/29/2020 11:02 AM EDT Legal Sex Female 4:44 PM EST Gender Identity Female 05/29/2020 11:02 AM EDT Sexual Orientation Straight 05/29/2020 11 :02 AM EDT documented as of this encounter Plan of Treatment Upcoming Encounters Date Type Department Care Team ([facility] Contact Info) Description 10/17/2025 2:15 PM EST Office Visit [facility] 10 [place] [address] Unknown, Unknown, Breanna Lee PA-C [address] [address] documented as of this encounter Visit Diagnoses Not on filedocumented in this encounter Care Teams Parachute Folder Relationship Specialty Start Date End Date Gage Rivas DO PCP - General 08/30/17 Gage Rivas DO Historical LMR Provider 09/05/17 documented as of this encounter Additional Source Comments The information contained in this document represents components of the legal health record. It is not the complete legal health record.[facility]
--- OUTSIDE RECORDS SUMMARY | 2025-09-19 17:42 | XMS_ITS | Encounter Summary ---
Author Organization [facility] Address [address] [facility] [address] [place] [address] Phone Care Team Providers Care Soft Mud Molder Name Role Phone Gage Rivas Primary Care Provider [phone] Josechristina Gage Yoko DO Unavailable Reason for Referral * MRI/CAT Scan - Closed Specialty Diagnoses / Procedures Referred By Tal davis Referred To Contact Radiology Diagnoses Nausea and vomiting, unspecified vomiting type Procedures CT Abdomen/Pelvis Breanna Esparza PA 10 [place] [address] Phone: tel: fax: Referral ID Status Reason Start Date Expiration Date Visits Re quested Visits Authorized [id number] Closed 06/19/2024 06/19/2025 1 1 Encounter Details Date Type Department Care Team (Latest Contact Info) Description 06/19/2024 Transcribe Orders Virtual Department 30 [place] [address] Breanna Esparza PA 10 [place] [address] Nausea and vomiting, unspecified vomiting type (Primary Dx) Social History Tobacco Use Types [...] as food, clothing, or medical care? No 06/22/2023 In the past 12 months have y ou been in a relationship with a person who hurts, threatens, or tries to control you? No 06/22/2023 Are you denied basic needs s uch as food, clothing, or medical care? No 06/22/2023 In the past 12 months have y ou been in a relationship with a person who hurts, threatens, or tries to control you? No 06/22/2023 Comments No Sex and Gender Information Value [...] Description 10/17/2025 2:15 PM EST Office Visit [facility] [address] [place] [address] Unknown, Unknown, Breanna Lee PA-C [address] [place] [address] [email or web address] documented as of this encounter Results * CT ABDOMEN/PELVIS WITH CONTRAST (07/21/2024 3:05 PM EDT) Anatomical Region Laterality Modality Abdomen, Pelvis Computed Tomogra phy 07/26/2024 8:27 AM EDT Impressions 07/26/2024 8:47 AM EDT 1. No acute finding in the CT abdomen pelvis. 2. Diffuse fatty infiltration of liver, this can lead to right upper quadrant/upper abdominal pain. Please correlate clinically. 3. Rest of the findings as above. Narrative 07/26/2024 8:[address] ABDOMEN/PELVIS WITH CONTRAST Referring clinician's provided indication for this examination in Epic: * Nausea/vomiting; Outside Radiology Order; ABDOMINAL PAIN TECHNIQUE: Multidetector-row CT of the abdomen and pelvis was performed after administration of intravenous contrast using tailored dose modulation techniques. Images were reconstructed in the axial, coronal, and sagittal planes. COMPARISON: Prior from March 27, 2023 FINDINGS: Lower Chest: Normal. No consolidation or pleural effusions. Liver: Diffuse fatty infiltration of liver.. No focal lesions. Biliary: Gallbladder surgically absent. No biliary ductal dilatation. Spleen: Normal. No splenomegaly or focal lesions. Pancreas: 1.4 cm cyst in the patient dedicated, unchanged prior from 2019. No masses or ductal dilatation. Adrenal Glands: Stable 14 mm left adrenal nodule. No nodules. Kidneys/Ureters: Simple cysts, largest measuring 2.4 cm in the left lower pole. No solid masses, stones, or hydronephrosis. Bowel: Small hiatal hernia. Colonic diverticula seen without arthritis. Postoperative changes in the sigmoid colon. No distention or wall thickening. Peritoneum/Retroperitoneum: Normal. No masses, pneumoperitoneum, or fluid. Lymph Nodes: Normal. No lymphadenopathy. Pelvic Organs/Bladder: Hysterectomy. No mass. Vessels: Diffuse scattered atherosclerotic disease of aorta and its branches. No abdominal aortic aneurysm. Bones/Soft Tissues: Diffuse osteopenia with degenerative changes of the lumbar spine. No destructive osseous lesions. Scoliosis of thoracolumbar spine. Procedure Note Bao Sam I, SARIBS - 07/26/2024 CT ABDOMEN/PELVIS WITH CONTRAST Referring clinician's provided indication for this examination in [facility]: *Nausea/vomiting; Outside Radiology Order; ABDOMINAL PAIN TECHNIQUE: Multidetector-row CT of the abdomen and pelvis was performedafter administration of intravenous contrast using tailored dosemodulation techniques. Images were reconstructed in the axial, coronal,and sagittal planes. COMPARISON: Prior from March 27, 2023 FINDINGS: Lower Chest: Normal. No consolidation or pleural effusions. Liver: Diffuse fatty infiltration of liver.. No focal lesions. Biliary: Gallbladder surgically absent. No biliary ductal dilatation. Spleen: Normal. No splenomegaly or focal lesions. Pancreas: 1.4 cm cyst in the patient dedicated, unchanged prior from 2019.No masses or ductal dilatation. Adrenal Glands: Stable 14 mm left adrenal nodule. No nodules. Kidneys/Ureters: Simple cysts, largest measuring 2.4 cm in the left lowerpole. No solid masses, stones, or hydronephrosis. Bowel: Small hiatal hernia. Colonic diverticula seen without arthritis.Postoperative changes in the sigmoid colon. No distention or wallthickening. Peritoneum/Retroperitoneum: Normal. No masses, pneumoperitoneum, orfluid. Lymph Nodes: Normal. No lymphadenopathy. Pelvic Organs/Bladder: Hysterectomy. No mass. Vessels: Diffuse scattered atherosclerotic disease of aorta and itsbranches. No abdominal aortic aneurysm. Bones/Soft Tissues: Diffuse osteopenia with degenerative changes of thelumbar spine. No destructive osseous lesions. Scoliosis of thoracolumbarspine. IMPRESSION: 1. No acute finding in the CT abdomen pelvis. 2. Diffuse fatty infiltration of liver, this can lead to right upperquadrant/upper abdominal pain. Please correlate clinically. 3. Rest of the findings as above. Breanna JIMENES IMG CT ABD/PELVIS Final Res ult documented in this encounter Visit Diagnoses Diagnosis Nausea and vomiting, unspecified vomiting type- Primary Nausea and vomiting, unspecified vomiting type documented in this encounter Care Teams Soft Mud Molder Relationship Specialty Start Date End Date Gage Rivas DO [email or web address] PCP - General 08/30/17 Gage Rivas DO [email or web address] Historical LMR Provider 09/05/17 documented as of this encounter Additional Source Comments The information contained in this document represents components of the legal health record. It is not the complete legal health record.[facility]
--- OUTSIDE RECORDS SUMMARY | 2025-09-19 17:42 | XMS_ITS | Encounter Summary ---
Author Organization [facility] Address [address] [facility] [address] [place] [address] Phone Care Team Providers Care Technical Healthcare Consultant Name Role Phone Gage Rivas DO Primary Care Provider [phone] Gage Rivas DO Unavailable Encounter Details Date Type Department Care Team (Late Contact Info) Description 08/14/2022 Transcribe Orders Virtual Department [address] [place] [address] Gage Rivas DO [address] [facility] [address] [place] [address] [email or web address] Social History Tobacco Use Types Packs/Day Years [...] Upcoming Encounters Date Type Department Care Team ([facility] Contact Info) Description 10/17/2025 2:15 PM EST Office Visit [facility] 10 [place] [address] Unknown, Unknown, Breanna Lee, ITALIAC [address] [place] [address] [email or web address] documented as of this encounter Visit Diagnoses Not on filedocumented in this encounter Care Teams Technical Healthcare Consultant Relationship Specialty Start Date End Date Gage Rivas DO [email or web address] PCP - General 08/30/17 Gage Rivas DO [email or web address] Historical LMR Provider 09/05/17 documented as of this encounter Additional Source Comments The information contained in this document represents components of the legal health record. It is not the complete legal health record.[facility]
--- OUTSIDE RECORDS SUMMARY | 2025-09-19 17:42 | XMS_ITS | Encounter Summary ---
Author Organization [facility] Address [address] [facility] [address] [place] [address] Phone Care Team Providers Care Yarn Cleaner Name Role Phone Gage Rivas DO Primary Care Provider [phone] Gage Rivas DO Unavailable Encounter Details Date Type Department Care Team (Latest Contact Info) Description 03/16/2023 Transcribe Orders Virtual Department 30 [place] [address] Jess Morris PA [address] [facility] [place] [address] Left shoulder pain, unspecified chronicity (Primary Dx) Social History Tobacco Use Types [...] on file 03/12/2023 No 03/12/2023 No 03/12/2023 Comments No Sex and Gender Information Value [...] Description 10/17/2025 2:15 PM EST Office Visit [facility] 10 [place] [address] Unknown, Unknown, Breanna Lee PA-C [address] [address] [email or web address] documented as of this encounter Results * XR SHOULDER 2 VIEWS (LEFT) (03/16/2023 2:36 PM EDT) Anatomical Region Laterality Modality Shoulder Left Computed Radiogr aphy 03/17/2023 12:5 4 AM EDT Impressions 03/17/2023 12:55 AM EDT Mild glenohumeral and acromioclavicular joint degenerative change. Bones demineralized. Narrative 03/17/2023 12:55 AM EDT XR SHOULDER 2 OR MORE VIEWS (LEFT) COMPARISON: None FINDINGS: Bones demineralized. No acute fracture or dislocation. Glenohumeral alignment within normal limits. Mild glenohumeral spurring along the glenoid. Mild acromioclavicular joint space narrowing with marginal spurring. Procedure Note David Sheldon MD - 03/17/2023 XR SHOULDER 2 OR MORE VIEWS (LEFT) COMPARISON: None FINDINGS: Bones demineralized. No acute fracture or dislocation. Glenohumeralalignment within normal limits. Mild glenohumeral spurring along theglenoid. Mild acromioclavicular joint space narrowing with marginal spurring. IMPRESSION: Mild glenohumeral and acromioclavicular joint degenerative change. Bones demineralized. Jess JIMENES IMG XR UPPER EXTREMITY Venus l Result documented in this encounter Visit Diagnoses Diagnosis Left shoulder pain, unspecified chronicity- Primary Left shoulder pain, unspecified chronicity documented in this encounter Care Teams Yarn Cleaner Relationship Specialty Start Date End Date Gage Rivas DO PCP - General 08/30/17 Gage Rivas DO [email or web address] Historical LMR Provider 09/05/17 documented as of this encounter Additional Source Comments The information contained in this document represents components of the legal health record. It is not the complete legal health record.[facility]
--- OUTSIDE RECORDS SUMMARY | 2025-09-19 17:42 | XMS_ITS | Encounter Summary ---
Author Organization [facility] Address [address] [facility] [address] [place] [address] Phone Care Team Providers Care Receptionist Telephone Operator Name Role Phone JoseGage vasquez Primary Care Provider [phone] Gage Rivas DO Unavailable Ngoc Wilson NP Unavailable Richelle Cloud MD Unavailable Elton Burton MD Unavailable Sherri Yu MD Unavailable [phone] Anna Castillo NP Unavailable Encounter Details Date Type Department Care Team (Late st Contact Info) Description 09/26/2020 Procedure Pass [facility], Ct Scan - [address] [address] Social History Tobacco Use Types Packs/Day Years [...] Description 10/17/2025 2:15 PM EST Office Visit [facility] 10 [place] [address] Unknown, Unknown, Breanna Lee PA-C [address] [address] documented as of this encounter Visit Diagnoses Not on filedocumented in this encounter Care Teams Receptionist Telephone Operator Relationship Specialty Start Date End Date Gage Rivas DO PCP - General 08/30/17 Gage Rivas DO Historical LMR Provider 09/05/17 Ngoc Wilson NP 21 [place] [address] [email or web address] Historical LMR Provider 09/05/17 2 Richelle Cloud MD 15 [facility], [address] [place] [address] Historical LMR Provider 09/05/17 Elton Burton MD 14 [facility] [address] [place] [address] Historical LMR Provider 09/05/17 11/22/21 Sherri Yu MD [address] [place] [address] Historical LMR Provider 09/05/17 2 Anna Castillo NP [address] [place] [address] Historical LMR Provider 09/05/17 2 documented as of this encounter Additional Source Comments The information contained in this document represents components of the legal health record. It is not the complete legal health record.[facility]
--- OUTSIDE RECORDS SUMMARY | 2025-09-19 17:42 | XMS_ITS | Encounter Summary ---
Author Organization [facility] Address [address] [facility] [address] [place] [address] Phone Care Team Providers Care Lye Peel Operator Name Role Phone JoseGage vasquez Primary Care Provider [phone] Rob Gage Babcock DO Unavailable Ngoc Wilson CASH APPLICATION CLERK Unavailable Richelle Cloud MD Unavailable Elton Burton MD Unavailable Sherri Yu MD Unavailable [phone] Anna Castillo NP Unavailable Encounter Details Date Type Department Care Team (Late st Contact Info) Description 01/19/2020 Ancillary Orders [facility] [address] [place] [address] Pita Mora MD [address] [place] [address] [facility] [place] [address] [email or web address] Social History Tobacco Use Types Packs/Day Years [...] Upcoming Encounters Date Type Department Care Team ([facility] st Contact Info) Description 10/17/2025 2:15 PM EST Office Visit [facility] 10 [place] [address] Unknown, Unknown, Breanna Lee PA-C [address] [address] documented as of this encounter Visit Diagnoses Not on filedocumented in this encounter Care Teams Lye Peel Operator Relationship Specialty Start Date End Date Gage Rivas DO PCP - General 08/30/17 Gage Rivas DO Historical LMR Provider 09/05/17 Ngoc Wilson NP [address] [place] [address] [email or web address] Historical LMR Provider 09/05/17 2 Richelle Cloud MD [address] [place] [address] Historical LMR Provider 09/05/17 Elton Burton MD [address] [place] [address] Historical LMR Provider 09/05/17 11/22/21 Sherri Yu MD [address] [place] [address] Historical LMR Provider 09/05/17 2 Anna Castillo NP [address] [place] [address] Historical LMR Provider 09/05/17 2 documented as of this encounter Additional Source Comments The information contained in this document represents components of the legal health record. It is not the complete legal health record.[facility]
--- OUTSIDE RECORDS SUMMARY | 2025-09-19 17:42 | XMS_ITS | Encounter Summary ---
Author Organization [facility] Address [address] [facility] [address] [place] [address] Phone Care Team Providers Care Dental Intern Name Role Phone JoseGage vasquez Primary Care Provider [phone] Gage Rivas DO Unavailable Ngoc Wilson NP Unavailable Richelle Cloud MD Unavailable Elton Burton MD Unavailable Sherri Yu MD Unavailable [phone] Anna Castillo NP Unavailable Encounter Details Date Type Department Care Team (Late st Contact Info) Description 06/02/2020 Procedure Pass [facility], Ct Scan - [address] [address] Social History Tobacco Use Types Packs/Day Years [...] Description 10/17/2025 2:15 PM EST Office Visit [facility] 10 [place] [address] Unknown, Unknown, Breanna Lee PA-C [address] [address] documented as of this encounter Visit Diagnoses Not on filedocumented in this encounter Care Teams Dental Intern Relationship Specialty Start Date End Date Gage Rivas DO PCP - General 08/30/17 Gage Rivas DO Historical LMR Provider 09/05/17 Ngoc Wilson NP 21 [place] [address] [email or web address] Historical LMR Provider 09/05/17 2 Richelle Cloud MD 15 [facility], [address] [place] [address] Historical LMR Provider 09/05/17 Elton Burton MD 14 [facility] [address] [place] [address] Historical LMR Provider 09/05/17 11/22/21 Sherri Yu MD [address] [place] [address] Historical LMR Provider 09/05/17 2 Anna Castillo NP [address] [place] [address] Historical LMR Provider 09/05/17 2 documented as of this encounter Additional Source Comments The information contained in this document represents components of the legal health record. It is not the complete legal health record.[facility]
--- OUTSIDE RECORDS SUMMARY | 2025-09-19 17:42 | XMS_ITS | Encounter Summary ---
Author Organization [facility] Address [address] [facility] [address] [place] [address] Phone Care Team Providers Care Retail Pharmacy Manager Name Role Phone Josechristina Gage Yoko Primary Care Provider [phone] Josechristina Gage Yoko Unavailable Reason for Referral * Outpatient Procedure - Closed Specialty Diagnoses / Procedures Referred By Tal davis Referred To Contact Radiology Diagnoses Costochondral junction syndrome Procedures NM Bone Scan Limited Jess Morris PA Phone: tel: fax: Referral ID Status Reason Start Date Expiration Date Visits Re quested Visits Authorized [id number] Closed 05/19/2022 05/19/2023 2 2 Encounter Details Date Type Department Care Team (Latest Contact Info) Description 05/19/2022 Transcribe Orders Virtual Department 30 [place] [address] Jess Morris PA [address] [facility] [place] [address] [place] [address] Costochondral junction syndrome (Primary Dx) Social History Tobacco Use Types [...] Description 10/17/2025 2:15 PM EST Office Visit [facility] 10 [place] [address] Unknown, Unknown, Breanna Lee PA-C [address] [address] [email or web address] documented as of this encounter Results * NM Bone Scan Limited (06/09/2022 1:28 PM EDT) Anatomical Region Laterality Modality Shoulder Right, Shoulder Lef t, Arm Left, Arm Right, Elbow Left, Elbow Right, Forearm Left, Forearm Right, Wrist Right, Wrist Left, Hand Left, Hand Right, Hip Left, Hip Right, Hip Bilateral, Thigh Left, Thigh Right, Knee Left, Knee Right, Knee Bilateral, Leg Left, Leg Right, Ankle Left, Ankle Right, Foot Left, Foot Right, Pelvis Nucle ar Medicine 06/10/2022 1:03 PM EDT Impressions 06/10/2022 1:10 PM EDT No explanation for left chest wall/rib pain. Mild increased radiotracer activity within the left side of the mid-lower thoracic spine, likely degenerative. Evidence of an S-shaped scoliotic deformity. Narrative 06/10/2022 1:10 PM EDT NM BONE SCAN LIMITED Radionuclide bone scan: HISTORY: Pain over left anterolateral chest wall/ribs, no known injury. COMPARISON: One view chest x-ray 09/22/2021. TECHNIQUE: 25.6 mCi technetium 99m MDP was injected. Scans were performed more than two hours later. Whole body images were acquired and appropriate spot views were obtained based upon review of the whole body images. FINDINGS: Static images of the thorax performed. Evidence of an S-shaped deformity of the spine. Mild increased radiotracer activity within 2 consecutive levels of the mid-lower thoracic spine (roughly T7-T8 and T8-T9) to the left of midline. No suspicious activity within the ribs. Physiologic activity within the kidneys. Procedure Note Drew Rosenthal MD - 06/10/2022 NM BONE SCAN LIMITED Radionuclide bone scan: HISTORY: Pain over left anterolateral chest wall/ribs, no known injury. COMPARISON: One view chest x-ray 09/22/2021. TECHNIQUE: 25.6 mCi technetium 99m MDP was injected. Scans were performed more thantwo hours later. Whole body images were acquired and appropriate spotviews were obtained based upon review of the whole body images. FINDINGS: Static images of the thorax performed. Evidence of an S-shaped deformity of the spine. Mild increased radiotraceractivity within 2 consecutive levels of the mid-lower thoracic spine(roughly T7-T8 and T8-T9) to the left of midline. No suspicious activitywithin the ribs. Physiologic activity within the kidneys. IMPRESSION: No explanation for left chest wall/rib pain. Mild increased radiotraceractivity within the left side of the mid-lower thoracic spine, likelydegenerative. Evidence of an S-shaped scoliotic deformity. 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 It is not the complete legal health record.[facility]
--- OUTSIDE RECORDS SUMMARY | 2025-09-19 17:42 | XMS_ITS | Encounter Summary ---
Author Organization [facility] Address [address] [place] [address] Phone Care Team Providers Care Thermal Cutter Helper Name Role Phone JoseGage vasquez Primary Care Provider [phone] JoseGage vasquez DO Unavailable Encounter Details Date Type Department Care Team (Late st Contact Info) Description 08/22/2025 Procedure Pass [facility] Admitting Dept Virtual Department [address] [place] [address] Social History Tobacco Use Types Packs/Day Years [...] Upcoming Encounters Date Type Department Care Team ([facility] st Contact Info) Description 10/17/2025 2:15 PM EST Office Visit [facility] [address] [place] [address] Unknown, Unknown, Breanna Lee PA-C [address] [place] [address] documented as of this encounter Visit Diagnoses Not on filedocumented in this encounter Care Teams Thermal Cutter Helper Relationship Specialty Start Date End Date Gage Rivas DO PCP - General 08/30/17 Gage Rivas DO [email or web address] Historical LMR Provider 09/05/17 documented as of this encounter Additional Source Comments The information contained in this document represents components of the legal health record. It is not the complete legal health record.[facility]
--- OUTSIDE RECORDS SUMMARY | 2025-09-19 17:42 | XMS_ITS | Encounter Summary ---
Author Organization [facility] Address [address] [place] [address] Phone Care Team Providers Care Database Developer Name Role Phone Gage Rivas DO Primary Care Provider [phone] Gage Rivas DO Unavailable Encounter Details Date Type Department Care Team (Late st Contact Info) Description 05/13/2023 Ancillary Orders [facility], X-Ray - [address] [address] Janis Can, OPHTHALMOLOGY SURGICAL TECHNICIAN [address] [place] [address] ana [email or web address] Left shoulder pain, unspecified chronicity; Left knee pain, unspecified chronicity Social History Tobacco Use Types Packs/Day Years [...] Description 10/17/2025 2:15 PM EST Office Visit [facility]ology Clinic [address] [place] [address] Unknown, Unknown, Breanna Lee PA-C [address] [address] [email or web address] documented as of this encounter Results * XR SHOULDER 2 VIEWS (LEFT) (05/13/2023 4:06 PM EDT) Anatomical Region Laterality Modality Shoulder Left Computed Radiogr aphy 05/17/2023 9:33 AM EDT Impressions 05/17/2023 9:35 AM EDT No significant interval change from 03/16/2023. Narrative 05/17/2023 9:35 AM EDT XR SHOULDER 2 OR MORE VIEWS (LEFT) COMPARISON: 03/16/2023 FINDINGS: AP and transscapular Y-views obtained as per request reveal no acute fracture, subluxation, or other significant interval change. Visualized left ribs are intact and upper lung field grossly clear. Procedure Note Tony Pham MD - 05/17/2023 XR SHOULDER 2 OR MORE VIEWS (LEFT) COMPARISON: 03/16/2023 FINDINGS: AP and transscapular Y-views obtained as per request reveal no acutefracture, subluxation, or other significant interval change. Visualizedleft ribs are intact and upper lung field grossly clear. IMPRESSION: No significant interval change from 03/16/2023. us Janis Can OPHTHALMOLOGY SURGICAL TECHNICIAN IMG XR UPPER EXTREMITY Final Res ult * XR KNEE 3 VIEW (LEFT) (05/13/2023 4:05 PM EDT) Anatomical Region Laterality Modality Knee Left Computed Radiogr aphy 05/17/2023 9:31 AM EDT Impressions 05/17/2023 9:33 AM EDT No acute bony abnormality or advanced arthritic change apparent. Narrative 05/17/2023 9:33 AM EDT XR KNEE 3 VIEW (LEFT) COMPARISON: None FINDINGS: Left Knee: Lateral, patellar, and upright AP views were obtained. Joint spaces are grossly preserved in width. No significant periarticular spurring. No acute fracture or subluxation. No gross suprapatellar effusion or opaque loose joint body. Procedure Note Tony Pham MD - 05/17/2023 XR KNEE 3 VIEW (LEFT) COMPARISON: None FINDINGS: Left Knee: Lateral, patellar, and upright AP views were obtained. Jointspaces are grossly preserved in width. No significant periarticularspurring. No acute fracture or subluxation. No gross suprapatellareffusion or opaque loose joint body. IMPRESSION: No acute bony abnormality or advanced arthritic change apparent. us Janis Can NP IMG XR LOWER EXTREMITY Final Res ult documented in this encounter Visit Diagnoses Diagnosis Left shoulder pain, unspecified chronicity Left knee pain, unspecified chronicity Left knee pain, unspecified chronicity Left shoulder pain, unspecified chronicity documented in this encounter Care Teams Database Developer Relationship Specialty Start Date End Date Gage Rivas DO PCP - General 08/30/17 Gage Rivas DO [email or web address] Historical LMR Provider 09/05/17 documented as of this encounter Additional Source Comments The information contained in this document represents components of the legal health record. It is not the complete legal health record.[facility]
--- OUTSIDE RECORDS SUMMARY | 2025-09-19 17:42 | XMS_ITS | Encounter Summary ---
Author Organization [facility] Address [address] [place] [address] Phone Care Team Providers Care District Gauger Name Role Phone Gage Rivas Primary Care Provider [phone] JoseGage vasquez DO Unavailable Encounter Details Date Type Department Care Team (Late st Contact Info) Description 03/27/2023 Procedure Pass [facility], Ct Scan - [facility] [address] [place] [address] Social History Tobacco Use Types Packs/Day Years [...] AM EDT documented as of this encounter Functional Status * Calculated C-SSRS Risk Score (Lifetime/Recent) Answer Date of Assessment Author No Risk Indicated 03/27/2023 9:18 AM EDT Marlen Page, RN * [place] Suicide Severity Rating Scale (Screener/Recent Self-Report) Question Answer Date of Assessment Author 1. Wish to be (Past 1 Month) No 023 9:18 AM EDT Marlen Loja, RN 2. Non-Specific Active Suici tavia Thoughts (Past 1 Month) No 03/27/2023 9:18 AM EDT Marlen Loja, RN 6. Suicidal Behavior (Lifetime) No 3 9:18 AM EDT Marlen Loja, RN documented as of this encounter Plan of Treatment Upcoming Encounters Date Type Department Care Team ([facility] st Contact Info) Description 10/17/2025 2:15 PM EST Office Visit [facility] [address] [place] [address] Unknown, Unknown, Breanna Lee PA-C [address] [place] [address] documented as of this encounter Visit Diagnoses Not on filedocumented in this encounter Care Teams District Gauger Relationship Specialty Start Date End Date Gage Rivas DO PCP - General 08/30/17 Gage Rivas DO [email or web address] Historical LMR Provider 09/05/17 documented as of this encounter Additional Source Comments The information contained in this document represents components of the legal health record. It is not the complete legal health record.[facility]
--- OUTSIDE RECORDS SUMMARY | 2025-09-19 17:42 | XMS_ITS | Encounter Summary ---
Author Organization [facility] Address [address] [place] [address] Phone Care Team Providers Care Raymond Mill Operator Name Role Phone Rob Gage Babcock DO Primary Care Provider [phone] Gage Rivas DO Unavailable Ngoc Wilson NP Unavailable Richelle Cloud MD Unavailable [phone] Elton Burton MD Unavailable Sherri Yu MD Unavailable [phone] Anna Castillo NP Unavailable Reason for Referral * MRI/CAT Scan - Closed Specialty Diagnoses / Procedures Referred By Tal davis Referred To Contact Radiology Diagnoses Third nerve palsy of right eye Procedures CT Angio Head Nikolai Melchor MD Phone: tel: fax: [email or web address] Referral ID Status Reason Start Date Expiration Date Visits Re quested Visits Authorized [id number] Closed 06/04/2020 06/04/2021 1 1 Encounter Details Date Type Department Care Team (Late st Contact Info) Description 06/04/2020 Ancillary Orders [facility] Department [address] [place] [address] Nikolai Melchor MD [address] [place] [address], [address] [address] Third nerve palsy of right eye Social History Tobacco Use Types Packs/Day Years [...] Description 10/17/2025 2:15 PM EST Office Visit [facility] Gastroenterology Clinic [address] [place] [address] Unknown, Unknown, Breanna Lee PA-C [address] [address] [email or web address] documented as of this encounter Results * CT ANGIO HEAD WITH AND WITHOUT CONTRAST (06/06/2020 3:09 PM EDT) Anatomical Region Laterality Modality Neck Computed Tomogra phy 06/06/2020 3:20 PM EDT Impressions 06/06/2020 4:06 PM EDT 1.CT Brain: No acute abnormality 2.CTA of Brain: Evidence of mild atherosclerotic disease. No aneurysm is demonstrated. Narrative 06/06/2020 4:06 PM EDT EXAM: CT ANGIO HEAD WITH AND WITHOUT CONTRAST UNENHANCED AND ENHANCED CT OF THE BRAIN WITH CT ANGIOGRAPHY INDICATION: Third nerve palsy of right eye TECHNIQUE: CT brain WITHOUT intravenous contrast was performed. Subsequently, after administration of 100 cc of Omnipaque 300 intravenously, CTA brain was acquired. Coronal and sagittal reconstructions were generated, including MIP images. Automated exposure control utilized. COMPARISON: Head CT on May 29, 2020. Brain MRI on April 02, 2010 FINDINGS: CT BRAIN: Ventricles, sulci and extra axial spaces: The ventricles, sulci and cisterns are symmetric and prominent in keeping with age-related volume loss without hydrocephalus. Brain parenchyma: No acute hemorrhage or infart is seen. No mass, shift of midline structures or vasogenic edema. Dennis white differentiation is preserved. There are few scattered hypodensities in the subcortical periventricular and deep white matter, nonspecific, likely secondary to small vessel ischemic disease. No abnormal parenchymal enhancement identified in this CT angiogram study. Vascular: Unremarkable. Skull base: Sella and pineal gland are unremarkable. Craniovertebral junction is within normal limits. Orbits: The orbits are unremarkable. Paranasal sinuses: The visualized paranasal sinuses and the mastoid air cells are clear. Bones and soft tissues: The calvarium is intact.Soft tissues are unremarkable. CTA HEAD: There is mild atherosclerosis involving bilateral internal carotid arteries without high grade stenosis. Bilateral A1 segments of anterior cerebral artery are visualized and appear unremarkable. Bilateral M1 segments of middle cerebral arteries are unremarkable. There is no aneurysm involving the M1 bifurcation. Contour irregularity of bilateral M2 branches is likely due to atherosclerotic disease. The distal cortical branches of MCA bilaterally appear symmetric. A normal anterior communicating artery complex is seen. Bilateral posterior communicating arteries are not seen. No aneurysms of the posterior communicating artery seen. Normal enhancement is seen within bilateral posterior cerebral arteries. Normal enhancement is seen within the visualized vertebral and basilar arteries. No abrupt cut off or dissection is seen. No aneurysm at the basilar artery tip. The visualized dural venous sinuses are patent. Procedure Note Riley Clarke MD - 06/06/2020 EXAM: CT ANGIO HEAD WITH AND WITHOUT CONTRAST UNENHANCED AND ENHANCED CT OF THE BRAIN WITH CT ANGIOGRAPHY INDICATION: Third nerve palsy of right eye TECHNIQUE: CT brain WITHOUT intravenous contrast was performed. Subsequently, afteradministration of 100 cc of Omnipaque 300 intravenously, CTA brain wasacquired. Coronal and sagittal reconstructions were generated, includingMIP images. Automated exposure control utilized. COMPARISON: Head CT on May 29, 2020. Brain MRI on April 02, 2010 FINDINGS: CT BRAIN: Ventricles, sulci and extra axial spaces: The ventricles, sulci andcisterns are symmetric and prominent in keeping with age-related volumeloss without hydrocephalus. Brain parenchyma: No acute hemorrhage or infart is seen. No mass, shift ofmidline structures or vasogenic edema. Dennis white differentiation ispreserved. There are few scattered hypodensities in the subcortical periventricularand deep white matter, nonspecific, likely secondary to small vesselischemic disease. No abnormal parenchymal enhancement identified in thisCT angiogram study. Vascular: Unremarkable. Skull base: Sella and pineal gland are unremarkable. Craniovertebraljunction is within normal limits. Orbits: The orbits are unremarkable. Paranasal sinuses: The visualized paranasal sinuses and the mastoid aircells are clear. Bones and soft tissues: The calvarium is intact.Soft tissues areunremarkable. CTA HEAD: There is mild atherosclerosis involving bilateral internal carotidarteries without high grade stenosis. Bilateral A1 segments of anteriorcerebral artery are visualized and appear unremarkable. Bilateral [id number] of middle cerebral arteries are unremarkable. There is noaneurysm involving the M1 bifurcation. Contour irregularity of bilateralM2 branches is likely due to atherosclerotic disease. The distal corticalbranches of MCA bilaterally appear symmetric. A normal anterior communicating artery complex is seen. Bilateralposterior communicating arteries are not seen. No aneurysms of theposterior communicating artery seen. Normal enhancement is seen within bilateral posterior cerebral arteries.Normal enhancement is seen within the visualized vertebral and basilararteries. No abrupt cut off or dissection is seen. No aneurysm at thebasilar artery tip. The visualized dural venous sinuses are patent. IMPRESSION: 1.CT Brain: No acute abnormality 2.CTA of Brain: Evidence of mild atherosclerotic disease. No aneurysm isdemonstrated. 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, third or oculomotor nerve palsy, partial documented in this encounter Care Teams Raymond Mill Operator Relationship Specialty Start Date End Date Gage Rivas DO PCP - General 08/30/17 Gage Rivas DO Historical LMR Provider 09/05/17 Ngoc Wilson NP [address] [place] [address] [email or web address] Historical LMR Provider 09/05/17 2 Richelle Cloud MD [address] [address] Historical LMR Provider 09/05/17 Elton Burton MD 14 [facility] [address] [place] [address] Historical LMR Provider 09/05/17 11/22/21 Sherri Yu MD [address] [place] [address] Historical LMR Provider 09/05/17 2 Anna Castillo NP [address] [place] [address] Historical LMR Provider 09/05/17 2 documented as of this encounter Additional Source Comments The information contained in this document represents components of the legal health record. It is not the complete legal health record.[facility]
--- OUTSIDE RECORDS SUMMARY | 2025-09-19 17:42 | XMS_ITS | Encounter Summary ---
Author Organization [facility] Address [address] [place] [address] Phone Care Team Providers Care Hot Cell Technician Name Role Phone Gage Rivas DO Primary Care Provider [phone] Gage Rivas DO Unavailable Encounter Details Date Type Department Care Team (Late Contact Info) Description 07/03/2022 Ancillary Orders [facility], X-Ray - [address] [address] Janis Can, FULL STACK PYTHON DEVELOPER [address] [place] [address] [email or web address] Low back pain, unspecified back pain laterality, unspecified chronicity, unspecified whether sciatica present Social History Tobacco Use Types Packs/Day Years [...] Description 10/17/2025 2:15 PM EST Office Visit [facility] Gastroenterology Clinic [address] [place] [address] Unknown, Unknown, Breanna Lee PA-C [address] [place] [address] [place] Bedoya [address] [email or web address] documented as of this encounter Results * XR LUMBOSACRAL SPINE 4 OR MORE VIEWS (07/03/2022 2:52 PM EDT) Anatomical Region Laterality Modality L-spine Computed Radiogr aphy 07/04/2022 4:15 PM EDT Impressions 07/04/2022 4:30 PM EDT Mild degenerative changes in the lower lumbar spine. Narrative 07/04/2022 4:30 PM EDT XR LUMBOSACRAL SPINE 4 OR MORE VIEWS COMPARISON: None FINDINGS: Grade 1 anterolisthesis of L4 on L5 and L5 on S1. Levocurvature of the spine. Normal vertebral body heights. Normal intervertebral disc spaces. Facet arthropathy is more prominent at L4-L5 and L5-S1. Mild degenerative changes of bilateral sacroiliac joints. Procedure Note Riley Clarke MD - 07/04/2022 XR LUMBOSACRAL SPINE 4 OR MORE VIEWS COMPARISON: None FINDINGS: Grade 1 anterolisthesis of L4 on L5 and L5 on S1. Levocurvature of thespine. Normal vertebral body heights. Normal intervertebral disc spaces.Facet arthropathy is more prominent at L4-L5 and L5-S1. Mild degenerativechanges of bilateral sacroiliac joints. IMPRESSION: Mild degenerative changes in the lower lumbar spine. Janis Can NP IMG XR SPINE Final Result documented in this encounter Visit Diagnoses Diagnosis Low back pain, unspecified back pain laterality, unspecified chronicity, unspecified whether sciatica present Low back pain, unspecified back pain laterality, unspecified chronicity, unspecified whether sciatica present documented in this encounter Care Teams Hot Cell Technician Relationship Specialty Start Date End Date Gage Rivas DO PCP - General 08/30/17 Gage Rivas DO [email or web address] Historical LMR Provider 09/05/17 documented as of this encounter Additional Source Comments The information contained in this document represents components of the legal health record. It is not the complete legal health record.[facility]
--- OUTSIDE RECORDS SUMMARY | 2025-09-19 17:42 | XMS_ITS | Encounter Summary ---
Author Organization [facility] Address [address] [place] [address] Phone Care Team Providers Care Securities Broker Name Role Phone JoseGage vasquez Primary Care Provider [phone] Gage Rivas DO Unavailable Ngoc Wilson AIDS NURSE Unavailable Richelle Cloud MD Unavailable [phone] Elton Burton MD Unavailable Sherri Yu MD Unavailable [phone] Anna Castillo NP Unavailable Encounter Details Date Type Department Care Team (Late st Contact Info) Description 01/19/2020 Ancillary Orders [address] [address] Pita Mora MD [address] [place] [address] Orthopedics & Sports Medicine, [place] [address] [email or web address] Hip pain, right Social History Tobacco Use Types [...] Description 10/17/2025 2:15 PM EST Office Visit [facility] Gastroenterology Clinic [address] [place] [address] Unknown, Unknown, Breanna Lee PA-C [address] [address] [email or web address] [email or web address] Results Name Type Priority Associated Diagnoses Date /Time FL Guidance Needle Placement Non-Spine Imaging Routine Hip pain, right 01/23/2020 10:05 AM EDT Scheduled Orders Name Type Priority Associated Diagnoses Orde r Schedule FL Guidance Needle Placement Non-Spine Imaging Routine Hip pain, right 1 Occurrences starting 01/19/2020 until 04/20/2020 documented as of this encounter Visit Diagnoses Diagnosis Hip pain, right Pain in joint, pelvic region and thigh documented in this encounter Care Teams Securities Broker Relationship Specialty Start Date End Date Gage Rivas DO PCP - General 08/30/17 Gage Rivas DO Historical LMR Provider 09/05/17 Ngoc Wilson NP [address] [place] [address] [email or web address] Historical LMR Provider 09/05/17 Richelle Rosales MD [address] [place] [address], [address] [place] [address] Historical LMR Provider 09/05/17 Elton Burton MD 14 [facility] [address] [place] [address] [email or web address] Historical LMR Provider 09/05/17 11/22/21 Sherri Yu MD [address] [place] [id number] Historical LMR Provider 09/05/17 2 Anna Castillo NP [address] [place] [address] Historical LMR Provider 09/05/17 2 documented as of this encounter Additional Source Comments The information contained in this document represents components of the legal health record. It is not the complete legal health record.[facility]
--- OUTSIDE RECORDS SUMMARY | 2025-09-19 17:42 | XMS_ITS | Encounter Summary ---
Author Organization [facility] Address [address] [place] [address] Phone Care Team Providers Care Paint Department Supervisor Name Role Phone Rob Gage Babcock DO Primary Care Provider [phone] Gage Rivas DO Unavailable Ngoc Wilson NATUROPATHIC PHYSICIAN Unavailable Richelle Cloud MD Unavailable [phone] Elton Burton MD Unavailable [phone] Sherri Yu MD Unavailable [phone] Anna Castillo NP Unavailable [phone] Reason for Referral * MRI/CAT Scan - Closed Specialty Diagnoses / Procedures Referred By Contcecelia t Referred To Contact Radiology Diagnoses Low back pain, unspecified back pain laterality, unspecified chronicity, unspecified whether sciatica present Pain of lower extremity, unspecified laterality Procedures MRI Lumbar Spine Mega Ocampo MD Phone: tel: [email or web address] Referral ID Status Reason Start Date Expiration Date Visits Re quested Visits Authorized [id number] Closed 12/19/2019 12/18/2020 1 1 Encounter Details Date Type Department Care Team (Late st Contact Info) Description 12/19/2019 Ancillary Orders Virtual Department [address] [place] [address] Mega Ocampo MD [address] [place] [address] [email or web address] Low back pain, unspecified back pain laterality, unspecified chronicity, unspecified whether sciatica present; Pain of lower extremity, unspecified laterality Social History Tobacco Use Types Packs/Day Years [...] 10/17/2025 2:15 PM EST Office Visit [facility] [address] [place] [address] Unknown, Unknown, Breanna Lee PA-C [address] [place] [address] documented as of this encounter Results * MRI LUMBAR SPINE (NEURO) WITHOUT CONTRAST (12/25/2019 10:42 AM EST) Anatomical Region Laterality Modality L-spine Magnetic Resonan ce 12/25/2019 10:4 7 AM EST Impressions 12/25/2019 11:03 AM EST Stable overall appearance compared to 2018. Mild central and bilateral foraminal stenosis at L3-4. Severe central and moderately severe bilateral foraminal stenosis at L4-5. Minimal central and moderate left foraminal stenosis at L5-S1. No focal disc protrusion at any level. POS - [id number] Narrative 12/25/2019 11:03 AM EST TECHNIQUE: 1.5 Tati high-field MRI scanner. Sagittal T1, T2 and STIR, axial T1 and T2 sequences . Compare 12/01/2017 FINDINGS: About 2 mm anterolisthesis of L4 on L5 and L5 on S1 unchanged. Otherwise well-aligned vertebral bodies and no worrisome marrow changes. Normal conus position and appearance. T11-L3: Negligible broad disc bulge. No focal protrusion. Minor facet hypertrophy but no significant stenosis. L3-4: Moderate broad disc bulge. No focal protrusion though the bulge is more conspicuous in the lateral foramina. Mild central and bilateral foraminal stenosis. All findings unchanged from 2018. L4-5: Prominent broad disc bulge without focal protrusion and extensive posterior ligamentous and facet hypertrophy, particularly on the left, produces severe central and moderately severe bilateral foraminal stenosis, unchanged 2018. L5-S1: Mild broad disc bulge. No focal protrusion. Prominent facet and ligamentous hypertrophy but minimal central and right foraminal. Moderate left foraminal stenosis. Unchanged. Procedure Note Seamus Vásquez MD - 12/25/2019 TECHNIQUE: 1.5 Tati high-field MRI scanner. Sagittal T1, T2 and STIR, axial T1 and T2 sequences . Compare 12/01/2017 FINDINGS: About 2 mm anterolisthesis of L4 on L5 and L5 on S1 unchanged. Otherwise well-aligned vertebral bodies and no worrisome marrow changes. Normal conus position and appearance. T11-L3: Negligible broad disc bulge. No focal protrusion. Minor facethypertrophy but no significant stenosis. L3-4: Moderate broad disc bulge. No focal protrusion though the bulge ismore conspicuous in the lateral foramina. Mild central and bilateralforaminal stenosis. All findings unchanged from 2018. L4-5: Prominent broad disc bulge without focal protrusion and extensiveposterior ligamentous and facet hypertrophy, particularly on the left,produces severe central and moderately severe bilateral foraminalstenosis, unchanged 2018. L5-S1: Mild broad disc bulge. No focal protrusion. Prominent facet andligamentous hypertrophy but minimal central and right foraminal. Moderateleft foraminal stenosis. Unchanged. IMPRESSION: Stable overall appearance compared to 2018. Mild central and bilateral foraminal stenosis at L3-4. Severe central and moderately severe bilateral foraminal stenosis atL4-5. Minimal central and moderate left foraminal stenosis at L5-S1. No focal disc protrusion at any level. POS - [id number] Mega Ocampo MD IMG MR XSPECIALTY Final R esult documented in this encounter Visit Diagnoses Diagnosis Low back pain, unspecified back pain laterality, unspecified chronicity, unspecified whether sciatica present Pain of lower extremity, unspecified laterality Low back pain, unspecified back pain laterality, unspecified chronicity, unspecified whether sciatica present Pain of lower extremity, unspecified laterality documented in this encounter Care Teams Paint Department Supervisor Relationship Specialty Start Date End Date Gage Rivsa DO PCP - General 08/30/17 Gage Rivas DO Historical LMR Provider 09/05/17 Ngoc Wilson NP [address] [place] [address] [email or web address] Historical LMR Provider 09/05/17 2 Richelle Cloud MD 15 [facility], [address] [place] [address] Historical LMR Provider 09/05/17 Elton Burton MD 14 [facility] [address] [place] [address] Historical LMR Provider 09/05/17 11/22/21 Sherri Yu MD [address] [place] [address] Historical LMR Provider 09/05/17 2 Anna Castillo NP [address] [place] [address] Historical LMR Provider 09/05/17 2 documented as of this encounter Additional Source Comments The information contained in this document represents components of the legal health record. It is not the complete legal health record.[facility]
--- OUTSIDE RECORDS SUMMARY | 2025-09-19 17:42 | XMS_ITS | Encounter Summary ---
Author Organization [facility] Address [address] [facility] [address] [place] [address] Phone Care Team Providers Care Keno Writer Name Role Phone Gage Rivas Primary Care Provider [phone] JoseGage vasquez DO Unavailable Encounter Details Date Type Department Care Team (Late st Contact Info) Description 03/27/2023 Procedure Pass [facility], Ct Scan - [facility] [address] [place] [address] Social History Tobacco Use Types Packs/Day Years [...] 9:18 AM EDT Marlen Page, RN * [place] Suicide Severity Rating Scale (Screener/Recent Self-Report) Question [...] Upcoming Encounters Date Type Department Care Team ([facility] st Contact Info) Description 10/17/2025 2:15 PM EST Office Visit [facility] Gastro[facility]ology Clinic [address] [place] [address] Unknown, Unknown, Breanna Lee PA-C [address] [place] [address] documented as of this encounter Visit Diagnoses Not on filedocumented in this encounter Care Teams Keno Writer Relationship Specialty Start Date End Date Gage Rivas DO PCP - General 08/30/17 Gage Rivas DO Historical LMR Provider 09/05/17 documented as of this encounter Additional Source Comments The information contained in this document represents components of the legal health record. It is not the complete legal health record.[facility]
--- OUTSIDE RECORDS SUMMARY | 2025-09-19 17:42 | XMS_ITS | Encounter Summary ---
Author Organization [facility] Address [address] [place] [address] Phone Care Team Providers Care Clerk Entry Level Name Role Phone Gage Rivas Primary Care Provider JoseGage vasquez DO Unavailable Encounter Details Date Type Department Care Team (Late st Contact Info) Description 06/19/2024 Procedure Pass [facility], Ct Scan - [facility] [address] [place] [address] Social History Tobacco Use Types Packs/Day Years [...] Description 10/17/2025 2:15 PM EST Office Visit [facility] Gastro[facility]ology Clinic [address] [place] [address] Unknown, Unknown, Breanna Lee PA-C [address] [place] [address] documented as of this encounter Visit Diagnoses Not on filedocumented in this encounter Care Teams Clerk Entry Level Relationship Specialty Start Date End Date Gage Rivas DO PCP - General 08/30/17 Gage Rivas DO [email or web address] Historical LMR Provider 09/05/17 documented as of this encounter Additional Source Comments The information contained in this document represents components of the legal health record. It is not the complete legal health record.[facility]
--- OUTSIDE RECORDS SUMMARY | 2025-09-19 17:42 | XMS_ITS | Encounter Summary ---
Author Organization [facility] Address [address] [place] [address] Phone Care Team Providers Care Show Design Supervisor Name Role Phone JoseGage vasquez Primary Care Provider [phone] Rob Gage Babcock DO Unavailable Ngoc Wilson NP Unavailable Richelle Cloud MD Unavailable [phone] Elton Burton MD Unavailable [phone] Sherri Yu MD Unavailable [phone] Anna Castillo NP Unavailable [phone] Encounter Details Date Type Department Care Team (Latest Contact Info) Description 09/25/2020 Transcribe Orders [facility] Phleb Alvarado [address] [address] Breanna Esparza PA 10 [place] [address] Personal history of colonic polyps (Primary Dx); Slow transit constipation; Diverticulosis of large intestine without diverticulitis; Nausea Social History Tobacco Use Types Packs/Day [...] Description 10/17/2025 2:15 PM EST Office Visit [facility] [address] [place] [address] Unknown, Unknown, Breanna Lee PA-C [address] [address] documented as of this encounter Results * Lipase (09/25/2020 2:10 PM EST) Pathologist [facility] LIPASE 60 16 - 63 U/L [facility] Blood 09/25/2020 2:10 PM EST 09/25/2020 2:13 PM EST us Breanna JIMENES LAB BLOOD BKR ORDERABLES Fi nal Result [facility] [address] [place] [address] * (ABNORMAL) Comprehensive metabolic panel (09/25/2020 2:10 PM EST) SODIUM 136 133 - 146 mmol/L [facility] POTASSIUM 5.2(H) 3.3 - 5.1 mmol/L [facility] CHLORIDE 100 96 - 108 mmol/L [facility] CO2 25 21 - 35 mmol/L [facility] BUN 29(H) 6 - 19 mg/dL [facility] CREATININE 1.50 0.5 - 1.5 mg/dL [facility] GLUCOSE 205(H) 70 - 99 mg/dL [facility] ALBUMIN 4.4 3.9 - 4.8 g/dL [facility] TOTAL PROTEIN 7.1 6.5 - 8.0 g/dL [facility] CALCIUM 10.6(H) 8.4 - 10.3 mg/dL [facility] ALKALINE PHOSPHATASE 40 39 - 117 U/L [facility] TOTAL BILIRUBIN 0.3 0.0 - 1.2 mg/dL [facility] AST 23 0 - 37 U/L [facility] ALT 20 0 - 40 U/L [facility] GLOBULIN 2.7 1 - 4.8 g/dL [facility] EGFR 35(L) >59 mL/min/1.7 3m2 [facility] Comment:Estimated glomerular filtration rate calculated using the CKD-EPI equation. ANION GAP 16 10 - 20 mmol/L [facility] Blood 09/25/2020 2:10 PM EST 09/25/2020 2:13 PM EST us Breanna JIMENES LAB BLOOD BKR ORDERABLES Fi nal Result [address] [address] * CBC (09/25/2020 2:10 PM EST) WBC 6.88 4.00 - 11.00 K/uL [facility] Comment:Note Reference Range updates to all CBC and Differential results. RBC 3.91 3.72 - 5.30 M/uL [facility] HGB 11.8 11.4 - 15.9 g/dL [facility] Comment:Note updated Referen ce Ranges for all CBC and Differential results. HCT 35.3 34.2 - 46.8 % [facility] PLT 304 140 - 430 K/uL [facility] MCV 90.3 78.0 - 97.0 fL [facility] MCH 30.2 25.0 - 33.0 pg [facility] MCHC 33.4 32.0 - 36.0 g/dL [facility] RDW 14.2 11.0 - 16.0 % [facility] MPV 9.9 8.4 - 12.8 fl [facility] NRBC 0.00 0 /100 WBCs [facility] ABSOLUTE NRBC 0.00 0 K/uL [facility] Blood 09/25/2020 2:10 PM EST 09/25/2020 2:13 PM EST us Breanna JIMENES LAB BLOOD BKR ORDERABLES Fi nal Result [facility] [address] [place] [address] documented in this encounter Visit Diagnoses Diagnosis Personal history of colonic polyps- Primary Slow transit constipation Diverticulosis of large intestine without diverticulitis Diverticulosis of colon (without mention of hemorrhage) Nausea Nausea alone documented in this encounter Care Teams Show Design Supervisor Relationship Specialty Start Date End Date Gage Rivas DO PCP - General 08/30/17 Gage Rivas DO Historical LMR Provider 09/05/17 Ngoc Wilson NP [address] [place] [address] [email or web address] Historical LMR Provider 09/05/17 2 Richelle Cloud MD [address] [place] [address] Historical LMR Provider 09/05/17 Elton Burton MD 14 [facility] [address] [place] [address] Historical LMR Provider 09/05/17 11/22/21 Sherri Yu MD [address] [place] [address] Historical LMR Provider 09/05/17 2 Anna Castillo NP [address] [place] [address] Historical LMR Provider 09/05/17 2 documented as of this encounter Additional Source Comments The information contained in this document represents components of the legal health record. It is not the complete legal health record.[facility]
--- OUTSIDE RECORDS SUMMARY | 2025-09-19 17:42 | XMS_ITS | Encounter Summary ---
Author Organization [facility] Address [address] [facility] [address] [place] [address] Phone Care Team Providers Care Paint Sprayer Sandblaster Name Role Phone Gage Rivas Primary Care Provider [phone] JoseGage vasquez DO Unavailable Encounter Details Date Type Department Care Team (Latest Contact Info) Description 06/22/2023 Transcribe Orders Virtual Department [address] [place] [address] Jess Morris PA 6 [facility] [place] [address] Mononeuropathy of upper extremity, unspecified laterality (Primary Dx) Social History Tobacco Use Types [...] Date of Assessment Author No Risk Indicated 06/22/2023 2:29 PM EDT Jessica Israel, FATMATA * [place] Suicide Severity Rating Scale (Screener/Recent Self-Report) Question Answer Date of Assessment Author 2. Non-Specific Active Suici tavia Thoughts (Past 1 Month) No 06/22/2023 2:29 PM EDT Jessica Israel, FATMATA 6. Suicidal Behavior (Lifetime) No 2:29 PM EDT Jessica Israel, FATMATA documented as of this encounter Plan of Treatment Upcoming Encounters Date Type Department Care Team (Late st Contact Info) Description 10/17/2025 2:15 PM EST Office Visit [facility] G[facility]ology Clinic [address] [place] [address] Unknown, Unknown, Breanna Lee PA-C [address] [place] [address] [email or web address] documented as of this encounter Visit Diagnoses Diagnosis Mononeuropathy of upper extremity, unspecified laterality- Primary documented in this encounter Care Teams Paint Sprayer Sandblaster Relationship Specialty Start Date End Date Gage Rivas DO PCP - General 08/30/17 Gage Rivas DO [email or web address] Historical LMR Provider 09/05/17 documented as of this encounter Additional Source Comments The information contained in this document represents components of the legal health record. It is not the complete legal health record.[facility]
--- OUTSIDE RECORDS SUMMARY | 2025-09-19 17:42 | XMS_ITS | Encounter Summary ---
Author Organization [facility] Address [address] [place] [address] Phone Care Team Providers Care Senior Health Physics Technician Name Role Phone Gage Rivas DO Primary Care Provider [phone] Gage Rivas DO Unavailable Encounter Details Date Type Department Care Team (Late Contact Info) Description 12/10/2022 Procedure Pass [facility], [address] [address] Social History Tobacco Use Types Packs/Day Years [...] [facility] [address] [place] [address] Unknown, Unknown, Breanna Lee PA-C [address] [address] documented as of this encounter Visit Diagnoses Not on filedocumented in this encounter Care Teams Senior Health Physics Technician Relationship Specialty Start Date End Date Gage Rivas DO PCP - General 08/30/17 JoseGage vasquez DO Historical LMR Provider 09/05/17 documented as of this encounter Additional Source Comments The information contained in this document represents components of the legal health record. It is not the complete legal health record.[facility]
--- OUTSIDE RECORDS SUMMARY | 2025-09-19 17:42 | XMS_ITS | Encounter Summary ---
Author Organization [facility] Address [address] [place] [address] Phone Care Team Providers Care Circular Distributor Name Role Phone JoseGage vasquez Primary Care Provider [phone] Gage Rivas DO Unavailable Ngoc Wilson NP Unavailable Richelle Cloud MD Unavailable [phone] Elton Burton MD Unavailable Sherri Yu MD Unavailable [phone] Anna Castillo NP Unavailable Encounter Details Date Type Department Care Team (Late st Contact Info) Description 05/29/2020 Procedure Pass [facility], Ct Scan - [address] [address] Social History Tobacco Use Types Packs/Day Years [...] Description 10/17/2025 2:15 PM EST Office Visit [facility] Gastro[facility]ology Clinic 10 [place] [address] Unknown, Unknown, Breanna Lee PA-C [address] [address] documented as of this encounter Visit Diagnoses Not on filedocumented in this encounter Care Teams Circular Distributor Relationship Specialty Start Date End Date Gage Rivas DO PCP - General 08/30/17 Gage Rivas DO Historical LMR Provider 09/05/17 Ngoc Wilson NP [address] [place] [address] [email or web address] Historical LMR Provider 09/05/17 2 Richelle Cloud MD 15 [facility], [address] [place] [address] Historical LMR Provider 09/05/17 Elton Burton MD 14 [facility] [address] [place] [address] Historical LMR Provider 09/05/17 11/22/21 Sherri Yu MD [address] [place] [address] Historical LMR Provider 09/05/17 2 Anna Castillo NP [address] [place] [address] Historical LMR Provider 09/05/17 2 documented as of this encounter Additional Source Comments The information contained in this document represents components of the legal health record. It is not the complete legal health record.[facility]
--- OUTSIDE RECORDS SUMMARY | 2025-09-19 17:42 | XMS_ITS | Encounter Summary ---
Author Organization [facility] Address [address] [facility] [address] [place] [address] Phone Care Team Providers Care Vp Global Marketing [employer] Name Role Phone Gage Rivas Primary Care Provider [phone] JoseGage vasquez DO Unavailable Encounter Details Date Type Department Care Team (Late Contact Info) Description 09/27/2024 Transcribe Orders [address] [place] [address] Karlie Clifford Social History Tobacco Use Types Packs/Day Years [...] Description 10/17/2025 2:15 PM EST Office Visit [facility] G[facility]ology Clinic [address] [place] [address] Unknown, Unknown, Breanna Lee PA-C [address] [address] documented as of this encounter Visit Diagnoses Not on filedocumented in this encounter Care Teams Vp Global Marketing [employer] Relationship Specialty Start Date End Date Gage Rivas DO PCP - General 08/30/17 Gage Rivas DO Historical LMR Provider 09/05/17 documented as of this encounter Additional Source Comments The information contained in this document represents components of the legal health record. It is not the complete legal health record.[facility]
--- OUTSIDE RECORDS SUMMARY | 2025-09-19 17:42 | XMS_ITS | Encounter Summary ---
Author Organization [facility] Address [address] [facility] [address] [place] [address] Phone Care Team Providers Care Numerical Control Nesting Operator Name Role Phone JoseGage vasquez Primary Care Provider [phone] Gage Rivas DO Unavailable Ngoc Wilson NP Unavailable Richelle Cloud MD Unavailable Elton Burton MD Unavailable Sherri Yu MD Unavailable [phone] Anna Castillo NP Unavailable Encounter Details Date Type Department Care Team (Late st Contact Info) Description 06/04/2020 Procedure Pass [facility], Ct Scan - [address] [address] Social History Tobacco Use Types Packs/Day Years [...] Description 10/17/2025 2:15 PM EST Office Visit [facility]ology Clinic [address] [place] [address] Unknown, Unknown, Breanna Lee PA-C [address] [address] documented as of this encounter Visit Diagnoses Not on filedocumented in this encounter Care Teams Numerical Control Nesting Operator Relationship Specialty Start Date End Date Gage Rivas DO PCP - General 08/30/17 Gage Rivas DO Historical LMR Provider 09/05/17 Ngoc Wilson NP [address] [place] [address] [email or web address] Historical LMR Provider 09/05/17 2 Richelle Cloud MD 15 [facility], [address] [place] [address] Historical LMR Provider 09/05/17 Elton Burton MD 14 [facility] [address] [place] [address] Historical LMR Provider 09/05/17 11/22/21 Sherri Yu MD [address] [place] [address] Historical LMR Provider 09/05/17 2 Anna Castillo NP [address] [place] [address] Historical LMR Provider 09/05/17 2 documented as of this encounter Additional Source Comments The information contained in this document represents components of the legal health record. It is not the complete legal health record.[facility]
--- OUTSIDE RECORDS SUMMARY | 2025-09-19 17:43 | XMS_ITS | Encounter Summary ---
Author Organization [facility] Address [address] [facility] [address] [place] [address] Phone Care Team Providers Care Desktop Support Technician Name Role Phone Josechristina Gage Babcock DO Primary Care Provider [phone] Gage Rivas DO Unavailable Ngoc Wilson NP Unavailable Richelle Cloud MD Unavailable [phone] Elton Burton MD Unavailable Sherri Yu MD Unavailable [phone] Anna Castillo NP Unavailable Encounter Details Date Type Department Care Team (Late st Contact Info) Description 11/17/2017 Procedure Pass [facility], [address] [address] Social History Tobacco Use Types Packs/Day Years [...] - - Weight 68 kg (150 lb) 11/20/2017 12:48 PM EST Height 154.9 cm (5' 1 ) 11/20/2017 12:48 PM EST Body Mass Index 28.34 11/20/2017 12:48 PM EST documented in this encounter Plan of Treatment Upcoming Encounters Date Type Department Care Team (Late st Contact Info) Description 10/17/2025 2:15 PM EST Office Visit [facility] [address] [place] [address] Unknown, Unknown, Breanna Lee PA-C [address] [address] documented as of this encounter Visit Diagnoses Not on filedocumented in this encounter Care Teams Desktop Support Technician Relationship Specialty Start Date End Date Gage Rivas DO PCP - General 08/30/17 Gage Rivas DO Historical LMR Provider 09/05/17 Ngoc Wilson NP [address] [place] [address] [email or web address] Historical LMR Provider 09/05/17 2 Richelle Cloud MD [address] [place] [address], [address] [place] [address] Historical LMR Provider 09/05/17 Elton Burton MD [address] [place] [address] [place] [address] Historical LMR Provider 09/05/17 11/22/21 Sherri Yu MD [address] [place] [address] Historical LMR Provider 09/05/17 2 Anna Castillo NP [address] [place] [address] Historical LMR Provider 09/05/17 2 documented as of this encounter Additional Source Comments The information contained in this document represents components of the legal health record. It is not the complete legal health record.[facility]
--- OUTSIDE RECORDS SUMMARY | 2025-09-19 17:43 | XMS_ITS | Encounter Summary ---
Author Organization [facility] Address [address] [facility] [address] [place] [address] Phone Care Team Providers Care Parts Control Clerk Name Role Phone Gage Rivas DO Primary Care Provider [phone] Gage Rivas DO Unavailable Ngoc Wilson NP Unavailable [phone] Richelle Cloud MD Unavailable Elton Burton MD Unavailable [phone] Sherri Yu MD Unavailable [phone] Anna Castillo NP Unavailable Reason for Referral * Outpatient Procedure - Closed Specialty Diagnoses / Procedures Referred By Tal davis Referred To Contact Radiology Diagnoses Nausea Procedures NM Gastric Emptying Gage Rivas DO Phone: tel: fax: [email or web address] Referral ID Status Reason Start Date Expiration Date Visits Re quested Visits Authorized [id number] Closed 04/08/2021 04/08/2022 1 1 Encounter Details Date Type Department Care Team (Late st Contact Info) Description 04/08/2021 Transcribe Orders Virtual Department 30 [place] [address] Gage Rivas DO [address] [facility] [address] [place], [place] [id number] [email or web address] Nausea (Primary Dx) Social History Tobacco Use Types [...] Description 10/17/2025 2:15 PM EST Office Visit [facility] [address] [place] [address] Unknown, Unknown, Breanna Lee PA-C [address] [place] [address] [email or web address] documented as of this encounter Results * NM GASTRIC EMPTYING SOLID PHASE (04/16/2021 12:31 PM EDT) Anatomical Region Laterality Modality Abdomen, Pelvis Nuclear Medicine 04/16/2021 12:3 7 PM EDT Impressions 04/16/2021 12:39 PM EDT Marked delay in gastric emptying representing a change from 2011, which in the appropriate clinical scenario would be consistent with gastroparesis. POS - [id number] Narrative 04/16/2021 12:39 PM EDT COMPARISON: 08/12/2012 gastric emptying study FINDINGS: The patient is given an oral dose of 0.871 mCi of Tc99m labeled sulfur colloid in a standard egg meal and evaluation of gastric emptying over four hours is obtained. At one hour there is 99.8% residual activity in the stomach which is above the normal range. At two hours there is 90.2% residual activity in the stomach which is above the normal range. At four hours there is 53.7% residual activity in the stomach which is above the normal range. No obvious gastroesophageal reflux is seen. NORMAL RANGE One hour 37-90% Two hours 30-60% Four hours 0-10% Procedure Note Tony Pham MD - 04/16/2021 COMPARISON: 08/12/2012 gastric emptying study FINDINGS: The patient is given an oral dose of 0.871 mCi of Tc99m labeled sulfurcolloid in a standard egg meal and evaluation of gastric emptying overfour hours is obtained. At one hour there is 99.8% residual activity in the stomach which is abovethe normal range. At two hours there is 90.2% residual activity in the stomach which isabove the normal range. At four hours there is 53.7% residual activity in the stomach which isabove the normal range. No obvious gastroesophageal reflux is seen. NORMAL RANGE One hour 37-90% Two hours 30-60% Four hours 0-10% IMPRESSION: Marked delay in gastric emptying representing a change from 2011, which inthe appropriate clinical scenario would be consistent withgastroparesis. POS - [id number] us Gage Rivas DO IMG NM ABDOMEN Final Result documented in this encounter Visit Diagnoses Diagnosis Nausea- Primary Nausea alone Nausea Nausea alone documented in this encounter Care Teams Parts Control Clerk Relationship Specialty Start Date End Date Gage Rivas DO PCP - General 08/30/17 Gage Rivas DO [email or web address] Historical LMR Provider 09/05/17 Ngoc Wilson NP [address] [place] [address] [email or web address] Historical LMR Provider 09/05/17 2 Richelle Cloud MD 15 [facility], [address] [place] [address] [email or web address] Historical LMR Provider 09/05/17 Elton Burton MD 14 [facility] [address] [place] [address] [email or web address] Historical LMR Provider 09/05/17 11/22/21 Sherri Yu MD [address] [place] [address] Historical LMR Provider 09/05/17 2 Anna Castillo NP [address] [place] [address] Historical LMR Provider 09/05/17 2 documented as of this encounter Additional Source Comments The information contained in this document represents components of the legal health record. It is not the complete legal health record.[facility]
--- OUTSIDE RECORDS SUMMARY | 2025-09-19 17:43 | XMS_ITS | Encounter Summary ---
Author Organization [facility] Address [address] [facility] [address] [place] [address] Phone Care Team Providers Care Refrigerating Engineer Name Role Phone Gage Rivas DO Primary Care Provider [phone] Gage Rivas DO Unavailable Ngoc Wilson NP Unavailable [phone] Richelle Cloud MD Unavailable [phone] Elton Burton MD Unavailable Sherri Yu MD Unavailable [phone] Anna Castillo NP Unavailable [phone] Reason for Referral * Outpatient Procedure - Closed Specialty Diagnoses / Procedures Referred By Tal davis Referred To Contact Diagnoses Other chest pain Procedures Adult Echo TTE Gage Rivas DO Phone: tel: fax: [email or web address] Referral ID Status Reason Start Date Expiration Date Visits Re quested Visits Authorized [id number] Closed 04/08/2021 04/08/2022 1 1 Encounter Details Date Type Department Care Team (Late st Contact Info) Description 04/08/2021 Transcribe Orders Virtual Department 30 [place] [address] Gage Rivas DO [address] [facility] [address] [place], [place] [id number] [email or web address] Other chest pain (Primary Dx) Social History Tobacco Use Types [...] Description 10/17/2025 2:15 PM EST Office Visit [facility] [address] [place] [address] Unknown, Unknown, Breanna Lee PA-C [address] [address] [email or web address] documented as of this encounter Results * TTE COMPREHENSIVE (05/09/2021 2:03 PM EDT) Body Surface Area 1.6 m2 Height 154 cm Weight 66 kg Systolic BP 93 mmHg Diastolic BP 58 mmHg Left Atrium Dimension Anterior-Posterior 37 15 - 40 mm Aortic Valve Peak Velocity 120.0 cm/s Aortic Valve Peak Gradient 6 mmHg Aortic Sinus Diameter 28 mm Ascending Aorta Diameter 31 mm Inferior Vena Cava Diameter 13 0.0 - 21 mm Interventricular Septum Thickness 8 mm Left Ventricle Internal Diameter End Diastole 48 37 - 52 mm Left Ventricle Internal Diameter End Systole 31 22 - 35 mm Left Ventricular Outflow Tract Diameter 18.0 mm LVOT VTI REST 202 mm Left Ventricular Outflow Tract Velocity 0.9 m/s Left Ventricular Outflow Tract Gradient at Rest 4 mmHg Left Ventricular Posterior Wall Thickness 9 mm Ejection Fraction 63 50 - 75 Percent Mitral Valve Deceleration Time 366 ms Mitral Valve A Wave Speed 91.3 cm/s Mitral Valve E Wave Speed 62.1 cm/s Right Ventricle Basal Diameter 28.6 25 - 41 mm Raw LV EF% 58 % Left Atrial Volume 35 mL Left Atrial Volume Index 21.88 mL/m2 Right Ventricle TAPSE 15 mm Right Atrium Pressure Estimated 3 mmHg Right Ventricle Pulse Doppler S Wave 8.7 cm/s Right Ventricle Linear Dimension 29 mm Aortic Valve Sinus Index 1 18 19 - 27 mm Ascending Aorta Diameter 19 mm Aortic Sinus Index 18 mm Ascending Aorta Index 19 mm Anatomical Region Laterality Modality Heart Ultrasound Narrative 05/09/2021 3:39 PM EDT Normal LV size and function EF 65%. Normal RV size and function. Mild grade 1 diastolic dysfunction but elevated E/E prime ratio which may suggest elevated left atrial pressure. No significant valvular heart disease is seen. Compared to study from 2009, no change. Left Ventricle Left ventricular cavity size is normal. There is discrete upper septal thickening. Left ventricular systolic function is normal. There are no segmental left ventricular wall motion abnormalities noted. There is no evidence of diffuse left ventricular hypokinesis. The estimated ejection fraction is 63% (Normal 50-75%). The left ventricular ejection fraction was measured by the single dimension method. The diastolic function is indeterminate. There is no evidence of left ventricular thrombus. Right Ventricle The right ventricular size is normal. The right ventricle measures 29 mm at the base (normal 25-41 mm). The right ventricular systolic function is impaired. Left Atrium The left atrial anterior-posterior dimension measures 37 mm (normal 15-40 mm). The LA volume is 35 mL. The LA volume index is 21.88 mL/m2 (normal indexed value is 16- 34 mL/m2). The pulmonary venous flow profiles are normal. No evidence suggestive of pulmonary vein stenosis. Mitral Valve The mitral valve appears normal. The E/A ratio 0.7. The medial E' is 3.7 cm/s. The lateral E' is 5 cm/s. The E/E' average is 14.3. There is no evidence of mitral stenosis. There is no evidence of mitral annular calcification. There is mild focal thickening of the posterior mitral valve leaflet at the base of the mitral valve. There is no evidence of mitral valve prolapse. There is no significant mitral regurgitation detected by spectral and color Doppler. Tricuspid Valve The tricuspid valve appears normal. There is no evidence of tricuspid stenosis. There is evidence of trace tricuspid regurgitation by color and spectral Doppler. There is an insufficient tricuspid regurgitation Doppler profile to calculate a right ventricular systolic pressure. Aortic Valve The aortic valve is tricuspid. The non coronary leaflet is thickened but there is no stenosis. The peak aortic valve gradient is 6 mmHg. There is no evidence of aortic regurgitation by color and spectral Doppler. The visualized portions of the thoracic aorta appear normal. Pulmonic Valve The pulmonary valve appears normal. There is no evidence of pulmonic stenosis. There is no evidence of pulmonary regurgitation by color and spectral Doppler. The pulmonary artery appears normal. Pericardium There is no evidence of pericardial effusion. Interatrial Septum The interatrial septum appears normal. General Findings Study quality was adequate. Technique(s) used in the evaluation: Color flow Doppler and Spectral Doppler. The predominant rhythm during the study was sinus. Patient tolerated the procedure well. Comparison Findings Compared to a prior TTE from 04/05/2010 us Gage Rivas DO CV ECHO ORDERABLES Final Result documented in this encounter Visit Diagnoses Diagnosis Other chest pain- Primary Other chest pain documented in this encounter Care Teams Refrigerating Engineer Relationship Specialty Start Date End Date Gage Rivas DO PCP - General 08/30/17 Ggae Rivas DO Historical LMR Provider 09/05/17 Ngoc Wilson NP [address] [place] [address] [email or web address] Historical LMR Provider 09/05/17 2 Richelle Cloud MD [address] [place] [address] [email or web address] Historical LMR Provider 09/05/17 Elton Burton MD [address] [place] [address] [email or web address] Historical LMR Provider 09/05/17 11/22/21 Sherri Yu MD [address] [place] [id number] Historical LMR Provider 09/05/17 2 Anna Castillo NP [address] [place] [address] Historical LMR Provider 09/05/17 2 documented as of this encounter Additional Source Comments The information contained in this document represents components of the legal health record. It is not the complete legal health record.[facility]
--- OUTSIDE RECORDS SUMMARY | 2025-09-19 17:43 | XMS_ITS | Encounter Summary ---
Author Organization [facility] Address [address] [facility] [address] [place] [address] Phone Care Team Providers Care Asset Protection Representative Name Role Phone Rob Gage Babcock DO Primary Care Provider [phone] Gage Rivas DO Unavailable Encounter Details Date Type Department Care Team (Late Contact Info) Description 01/21/2022 Transcribe Orders Virtual Department 30 [place] [address] Gage Rivas DO 179 [facility] [address] [place] [address] Breast screening (Primary Dx) Social History Tobacco Use Types [...] Description 10/17/2025 2:15 PM EST Office Visit [facility] 10 [place] [address] Unknown, Unknown, Breanna Lee PA-C [address] [place] [address] [email or web address] documented as of this encounter Results * BI MAMMOGRAM SCREENING WITH TOMOSYNTHESIS WITH CAD (BILATERAL) (01/28/2022 2:48 PM EDT) Anatomical Region Laterality Modality Breast Left, Breast Right, Breast Bilateral Bila teral Mammography 01/28/2022 7:12 PM EDT Impressions 01/28/2022 7:39 PM EDT BILATERAL BREASTS: Benign, no evidence of malignancy. Normal interval follow-up is recommended in 12 months. Bi-RADS: BI-RADS CATEGORY: 2 - Benign finding. DENSITY: There are scattered fibroglandular densities. Narrative 01/28/2022 7:39 PM EDT STUDY: Bilateral screening mammography with tomosynthesis and CAD TECHNIQUE: Bilateral full-field digital screening mammography is obtained and read in conjunction with computer-aided detection. Tomosynthesis as well as 2-D C view imaging were obtained. COMPARISON: Comparison made to multiple prior, most recent May 26, 2018, and most remote April 09, 2015. BREAST COMPOSITION: There are scattered areas of fibroglandular density RIGHT BREAST: Previous excisional biopsy. No significant masses, suspicious calcifications or other abnormalities are seen. LEFT BREAST: No significant masses, suspicious calcifications or other abnormalities are seen. Procedure Note Riley Clarke MD - 01/28/2022 STUDY: Bilateral screening mammography with tomosynthesis and CAD TECHNIQUE: Bilateral full-field digital screening mammography is obtainedand read in conjunction with computer-aided detection. Tomosynthesis aswell as 2-D C view imaging were obtained. COMPARISON: Comparison made to multiple prior, most recent May 26, 2018,and most remote April 09, 2015. BREAST COMPOSITION: There are scattered areas of fibroglandulardensity RIGHT BREAST: Previous excisional biopsy. No significant masses,suspicious calcifications or other abnormalities are seen. LEFT BREAST: No significant masses, suspicious calcifications or otherabnormalities are seen. IMPRESSION: BILATERAL BREASTS: Benign, no evidence of malignancy. Normal intervalfollow-up is recommended in 12 months. Bi-RADS: BI-RADS CATEGORY: 2 - Benign finding. DENSITY: There are scattered fibroglandular densities. us Gage Babcock Rob PIERRE IMG MG EXAMS Final Result documented in this encounter Visit Diagnoses Diagnosis Breast screening- Primary Breast screening, unspecified Breast screening Breast screening, unspecified documented in this encounter Care Teams Asset Protection Representative Relationship Specialty Start Date End Date Gage Rivas DO PCP - General 08/30/17 Gage Rivas DO Historical LMR Provider 09/05/17 documented as of this encounter Additional Source Comments The information contained in this document represents components of the legal health record. It is not the complete legal health record.[facility]
--- OUTSIDE RECORDS SUMMARY | 2025-09-19 17:43 | XMS_ITS | Encounter Summary ---
Author Organization [facility] Address [address] [facility] [address] [place] [address] Phone Care Team Providers Care Pickup Driver Name Role Phone Rob Gage Babcock DO Primary Care Provider [phone] Gage Rivas DO Unavailable Ngoc Wilson NP Unavailable [phone] Richelle Cloud MD Unavailable [phone] Elton Burton MD Unavailable [phone] Sherri Yu MD Unavailable [phone] Anna Castillo NP Unavailable [phone] Reason for Referral * Physical Therapy (Routine) - Closed Specialty Diagnoses / Procedures Referred By Tal davis Referred To Contact Physical Therapy Diagnoses Encounter for rehabilitation Jess Roman CNP Phone: tel: fax: [email or web address] [address] [place] [address] Phone: tel: Referral ID Status Reason Start Date Expiration Date Visits Re quested Visits Authorized [id number] Closed 01/20/2019 01/21/2020 99 99 Encounter Details Date Type Department Care Team (Latest Contact Info) Description 01/20/2019 Transcribe Orders [facility] [address] [place] [address] Jess Roman CNP [address] [place] [address] [email or web address] Encounter for rehabilitation (Primary Dx) Social History Tobacco Use Types Packs/Day Years Used Date Smoking Tobacco: Never Assessed Comments No Sex and Gender Information Value [...] Description 10/17/2025 2:15 PM EST Office Visit [facility] [address] [place] [address] Unknown, Unknown, Breanna Lee PAKeven [address] [address] documented as of this encounter Procedures Procedure Name Priority Date/Time Associated Diagnosis Comments AMB REFERRAL TO [facility] PHYSICAL THERAPY Routine 02/09/2019 3:03 PM EDT Encounter for rehabilitation documented in this encounter Results * Ambulatory referral to [facility] Physical Therapy (02/09/2019 3:03 PM EDT) us Jess Roman CNP AMB [facility] REFERRALS Final Res ult documented in this encounter Visit Diagnoses Diagnosis Encounter for rehabilitation- Primary documented in this encounter Care Teams Pickup Driver Relationship Specialty Start Date End Date Gage Rivas DO PCP - General 08/30/17 Gage Rivas DO Historical LMR Provider 09/05/17 Ngoc Wilson NP [address] [place] [address] [email or web address] Historical LMR Provider 09/05/17 2 Richelle Cloud MD [address] [facility] [place] [address] [email or web address] Historical LMR Provider 09/05/17 Elton Burton MD 14 [facility] [address] [place] [address] [email or web address] Historical LMR Provider 09/05/17 11/22/21 Sherri Yu MD [address] [place] [address] Historical LMR Provider 09/05/17 2 Anna Castillo NP [address] [place] [address] Historical LMR Provider 09/05/17 2 documented as of this encounter Additional Source Comments The information contained in this document represents components of the legal health record. It is not the complete legal health record.[facility]
--- OUTSIDE RECORDS SUMMARY | 2025-09-19 17:43 | XMS_ITS | Encounter Summary ---
Author Organization [facility] Address [address] [facility] [address] [place] [address] Phone Care Team Providers Care Dental Assisting Instructor Name Role Phone JoseGage vasquez Primary Care Provider [phone] Rob Gage Babcock DO Unavailable Ngoc Wilson DIRECTOR OF DIGITAL TECHNOLOGY Unavailable Richelle Cloud MD Unavailable [phone] Elton Burton MD Unavailable [phone] Sherri Yu MD Unavailable [phone] Anna Castillo NP Unavailable Encounter Details Date Type Department Care Team (Late st Contact Info) Description 2017 Ancillary Orders Virtual Department 30 [place] [address] Jess Roman, CHIEF LENDING OFFICER 12 [place] [address] [email or web address] Pelvic pain; Unilateral groin pain; Inguinal pain, unspecified laterality Social History Tobacco Use Types [...] Description 10/17/2025 2:15 PM EST Office Visit [facility] 10 [place] [address] Unknown, Unknown, Breanna Lee PA-C 10 [facility] 2 [place] [address] [email or web address] documented as of this encounter Results * XR HIPS 1 VW EA BILAT PLUS PELVIS (11/04/2017 1:12 PM EST) Anatomical Region Laterality Modality Hip, Pelvis Radiographic Kelin ging 11/04/2017 4:18 PM EST Impressions 11/04/2017 4:21 PM EST 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 No other significant bony pathology. POS [id number] Narrative 11/04/2017 4:21 PM EST AP and frog-lateral pelvis and both hips, [address] abdomen 09/04/2014 No significant arthritic changes have become apparent in either hip. No signs of trauma, tumor, impingement or avascular necrosis. SI joints are unremarkable Sclerosis on either side of the symphysis pubis is unchanged from 2013 and very likely due to benign osteitis pubis in a female. No obvious soft tissue masses or significant soft tissue calcifications. A bowel anastomosis is visible in the central pelvis. Procedure Note Seamus Vásquez MD - 11/04/2017 AP and frog-lateral pelvis and both hips, [address] abdomen 09/04/2014 No significant arthritic changes have become apparent in either hip. No signs of trauma, tumor, impingement or avascular necrosis. SI joints are unremarkable Sclerosis on either side of the symphysis pubis is unchanged from 2013 andvery likely due to benign osteitis pubis in a female. No obvious soft tissue masses or significant soft tissue calcifications. A bowel anastomosis is visible in the central pelvis. IMPRESSION: Sclerotic changes in the symphysis pubis consistent with benign osteitispubis. No other significant bony pathology. POS [id number] Jess Roman CHIEF LENDING OFFICER IMG XR PELVIS Final Resul t documented in this encounter Visit Diagnoses Diagnosis Pelvic pain Inguinal pain, unspecified laterality Inguinal pain, unspecified laterality documented in this encounter Care Teams Dental Assisting Instructor Relationship Specialty Start Date End Date Gage Rivas DO PCP - General 08/30/17 Gage Rivas DO Historical LMR Provider 09/05/17 Ngoc Wilson NP 21 [place] [address] [email or web address] Historical LMR Provider 09/05/17 2 Richelle Cloud MD [address] [address] Historical LMR Provider 09/05/17 Elton Burton MD [address] [facility] [address] [place] [address] Historical LMR Provider 09/05/17 11/22/21 Sherri Yu MD [address] [place] [id number] Historical LMR Provider 09/05/17 2 Anna Castillo NP [address] [place] [address] Historical LMR Provider 09/05/17 2 documented as of this encounter Additional Source Comments The information contained in this document represents components of the legal health record. It is not the complete legal health record.[facility]
--- OUTSIDE RECORDS SUMMARY | 2025-09-19 17:43 | XMS_ITS | Encounter Summary ---
Author Organization [facility] Address [address] [facility] [address] [place] [address] Phone Care Team Providers Care Dry House Tender Name Role Phone Gage Rivas DO Primary Care Provider [phone] Gage Rivas DO Unavailable Ngoc Wilson COMMERCIAL ENGINEER Unavailable Richelle Cloud MD Unavailable Elton Burton MD Unavailable Sherri Yu MD Unavailable [phone] Anna Castillo NP Unavailable Encounter Details Date Type Department Care Team (Late st Contact Info) Description 12/24/2017 Transcribe Orders [facility] [address] [place] [address] Gage Rivas DO [address] [facility] [place] [address] Type 1 diabetes mellitus with complication (Primary Dx) Social History Tobacco Use Types [...] Visit [facility] 10 [place] [address] Unknown, Unknown, Breanna Lee PA-C [address] [address] [email or web address] documented as of this encounter Visit Diagnoses Diagnosis Type 1 diabetes mellitus with complication- Primary documented in this encounter Care Teams Dry House Tender Relationship Specialty Start Date End Date Gage Rivas DO PCP - General 08/30/17 Gage Rivas DO Historical LMR Provider 09/05/17 Ngoc Wilson NP 21 [place] [address] [email or web address] Historical LMR Provider 09/05/17 2 Richelle Cloud MD 15 [facility], [address] [place] [address] Historical LMR Provider 09/05/17 Elton Burton MD 14 [facility] [address] [place] [address] Historical LMR Provider 09/05/17 11/22/21 Sherri Yu MD [address] [place] [address] Historical LMR Provider 09/05/17 2 Anna Castillo NP [address] [place] [address] Historical LMR Provider 09/05/17 2 documented as of this encounter Additional Source Comments The information contained in this document represents components of the legal health record. It is not the complete legal health record.[facility]
--- OUTSIDE RECORDS SUMMARY | 2025-09-19 17:43 | XMS_ITS | Encounter Summary ---
Author Organization [facility] Address [address] [facility] [address] [place] [address] Phone Care Team Providers Care Card Lacer Jacquard Name Role Phone JoseGage vasquez Primary Care Provider [phone] Gage Rivas DO Unavailable Ngoc Wilson CORK SORTER Unavailable Richelle Cloud MD Unavailable [phone] Elton Burton MD Unavailable Sherri Yu MD Unavailable [phone] Anna Castillo NP Unavailable Encounter Details Date Type Department Care Team (Late st Contact Info) Description 10/24/2018 Ancillary Orders [facility], X-Ray - [address] [address] Jess Roman, TECHNICAL TRAINING MANAGER [address] [place] [address] [email or web address] Dizziness and giddiness Social History Tobacco Use Types Packs/Day Years [...] Description 10/17/2025 2:15 PM EST Office Visit [facility]astro[facility] 10 [place] [address] Unknown, Unknown, Breanna Lee PA-C 10 [facility] 2 [place] [address] [email or web address] documented as of this encounter Results * XR PARANASAL SINUSES 3 OR MORE VIEWS (10/24/2018 3:22 PM EST) Anatomical Region Laterality Modality Face Radiographic Kelin ging 10/24/2018 3:47 PM EST Impressions 10/24/2018 3:48 PM EST Unremarkable evaluation of the sinuses. No findings of sinusitis or explanation for facial pain is seen. S/S: Facial pain and headaches x1 month POS - [id number] Narrative 10/24/2018 3:48 PM EST COMPARISON: None FINDINGS: 6 views of the sinuses are obtained. The sinuses appear clear. No mucosal thickening or air-fluid levels are evident. The sella turcica is unremarkable. Procedure Note Nico Burr MD - 10/24/2018 COMPARISON: None FINDINGS: 6 views of the sinuses are obtained. The sinuses appear clear. No mucosal thickening or air-fluid levels areevident. The sella turcica is unremarkable. IMPRESSION: Unremarkable evaluation of the sinuses. No findings of sinusitis orexplanation for facial pain is seen. S/S: Facial pain and headaches x1 month POS - [id number] us Jess Roman TECHNICAL TRAINING MANAGER IMG XR HEAD AND SHUNT SERIE S Final Result documented in this encounter Visit Diagnoses Diagnosis Dizziness and giddiness Dizziness and giddiness documented in this encounter Care Teams Card Lacer Jacquard Relationship Specialty Start Date End Date Gage Rivas DO PCP - General 08/30/17 Gage Rivas DO Historical LMR Provider 09/05/17 Ngoc Wilson CORK SORTER 21 [place] [address] [email or web address] Historical LMR Provider 09/05/17 2 Rihcelle Cloud MD [address] [address] Historical LMR Provider 09/05/17 Elton Burton MD 14 [facility] [address] [place] [address] Historical LMR Provider 09/05/17 11/22/21 Sherri Yu MD [address] [place] [address] Historical LMR Provider 09/05/17 2 Anna Castillo NP [address] [place] [address] Historical LMR Provider 09/05/17 2 documented as of this encounter Additional Source Comments The information contained in this document represents components of the legal health record. It is not the complete legal health record.[facility]
--- OUTSIDE RECORDS SUMMARY | 2025-09-19 17:43 | XMS_ITS | Encounter Summary ---
Author Organization [facility] Address [address] [facility] [address] [place] [address] Phone Care Team Providers Care Semiconductor Packages Platemaker Name Role Phone JoseGage vasquez Primary Care Provider [phone] Gage Rivas DO Unavailable Ngoc Wilson NP Unavailable Richelle Cloud MD Unavailable Elton Burton MD Unavailable [phone] Sherri Yu MD Unavailable [phone] Anna Castillo NP Unavailable Encounter Details Date Type Department Care Team (Late Contact Info) Description 04/08/2021 Procedure Pass [facility] 30 [place] [address] Social History Tobacco Use Types Packs/Day Years [...] 10/17/2025 2:15 PM EST [facility] 10 [place] [address] Unknown, Unknown, Breanna Lee PA-C [address] [address] documented as of this encounter Visit Diagnoses Not on filedocumented in this encounter Care Teams Semiconductor Packages Platemaker Relationship Specialty Start Date End Date Gage Rivas DO PCP - General 08/30/17 Gage Rivas DO Historical LMR Provider 09/05/17 Ngoc Wilson NP 21 [place] [address] [email or web address] Historical LMR Provider 09/05/17 2 Richelle Cloud MD 15 [facility], [address] [place] [address] Historical LMR Provider 09/05/17 Elton Burton MD 14 [facility] [address] [place] [address] Historical LMR Provider 09/05/17 11/22/21 Sherri Yu MD [address] [place] [address] Historical LMR Provider 09/05/17 2 Anna Castillo NP [address] [place] [address] Historical LMR Provider 09/05/17 2 documented as of this encounter Additional Source Comments The information contained in this document represents components of the legal health record. It is not the complete legal health record.[facility]
--- OUTSIDE RECORDS SUMMARY | 2025-09-19 17:43 | XMS_ITS | Encounter Summary ---
Author Organization [facility] Address [address] [facility] [address] [place] [address] Phone Care Team Providers Care County Judge Name Role Phone Gage Rivas DO Primary Care Provider [phone] Gage Rivas DO Unavailable Ngoc Wilson CLAMP CARRIER OPERATOR Unavailable Richelle Cloud MD Unavailable Elton Burton MD Unavailable [phone] Sherri Yu MD Unavailable [phone] Anna Castillo NP Unavailable Encounter Details Date Type Department Care Team (Late st Contact Info) Description 12/21/2017 Transcribe Orders [address] [place] [address] Gage Rivas DO 179 [facility] [place] [address] Social History Tobacco Use Types Packs/Day Years [...] Description 10/17/2025 2:15 PM EST Office Visit [facility]astro[facility]ology [facility] 10 [place] [address] Unknown, Unknown, Breanna Lee PA-C [address] [address] documented as of this encounter Visit Diagnoses Not on filedocumented in this encounter Care Teams County Judge Relationship Specialty Start Date End Date Gage Rivas DO PCP - General 08/30/17 Gage Rivas DO Historical LMR Provider 09/05/17 Ngoc Wilson NP [address] [place] [address] [email or web address] Historical LMR Provider 09/05/17 2 Richelle Cloud MD [address] [place] [address], [address] [place] [address] Historical LMR Provider 09/05/17 Elton Burton MD 14 [facility] [address] [place] [address] Historical LMR Provider 09/05/17 11/22/21 Sherri Yu MD [address] [place] [address] Historical LMR Provider 09/05/172 2 Anna Castillo NP [address] [place] [address] Historical LMR Provider 09/05/172 2 documented as of this encounter Additional Source Comments The information contained in this document represents components of the legal health record. It is not the complete legal health record.[facility]
--- OUTSIDE RECORDS SUMMARY | 2025-09-19 17:43 | XMS_ITS | Encounter Summary ---
Author Organization [facility] Address [address] [facility] [address] [place] [address] Phone Care Team Providers Care Sap Portal Architect Name Role Phone JoseGage vasquez Primary Care Provider [phone] Rob Gage Babcock DO Unavailable Ngoc Wilson HEAT TREATER HEAD Unavailable Richelle Cloud MD Unavailable [phone] Elton Burton MD Unavailable [phone] Sherri Yu MD Unavailable [phone] Anna Castillo NP Unavailable Encounter Details Date Type Department Care Team (Late st Contact Info) Description 2017 Ancillary Orders [facility] External Provider Virtual Department 30 [place] [address] Jess Roman, BOTTOM TURNING LATHE TENDER 12 [place] [address] [email or web address] Unilateral groin pain; RLQ abdominal pain Social History Tobacco Use Types Packs/Day Years [...] Description 10/17/2025 2:15 PM EST Office Visit [facility]astro[facility]ology [facility] 10 [place] [address] Unknown, Unknown, Breanna Lee PA-C 10 [facility] 2 [place] [address] [email or web address] documented as of this encounter Results * US PELVIS TRANSABDOMINAL PLUS TRANSVAGINAL (11/04/2017 1:01 PM EST) Anatomical Region Laterality Modality Pelvis, Uterus/Adnexa Ultrasound 11/04/2017 1:08 PM EST Impressions 11/04/2017 1:09 PM EST Unremarkable appearance of the ovaries. Prior hysterectomy. POS [id number] Narrative 11/04/2017 1:09 PM EST Compare to CT 09/04/2014 Transabdominal and transvaginal scanning were performed. The patient is had a hysterectomy. Neither ovary is enlarged. Right 1.4 cc. Left 1.5 cc. No cystic or solid masses in either adnexa. No free fluid in the cul-de-sac. Blood flow is confirmed in both ovaries. Procedure Note Seamus Vásquez MD - 11/04/[address] 09/04/2014 Transabdominal and transvaginal scanning were performed. The patient is had a hysterectomy. Neither ovary is enlarged. Right 1.4 cc. Left 1.5 cc. No cystic or solid masses in either adnexa. No free fluid in the cul-de-sac. Blood flow is confirmed in bothovaries. IMPRESSION: Unremarkable appearance of the ovaries. Prior hysterectomy. POS [id number] us Jess Roman BOTTOM TURNING LATHE TENDER IMG US PELVIS Final Resul t documented in this encounter Visit Diagnoses Diagnosis Unilateral groin pain RLQ abdominal pain Abdominal pain, right lower quadrant Unilateral groin pain RLQ abdominal pain Abdominal pain, right lower quadrant documented in this encounter Care Teams Sap Portal Architect Relationship Specialty Start Date End Date Gage Rivas DO PCP - General 08/30/17 Gage Rivas DO Historical LMR Provider 09/05/17 Ngoc Wilson NP 21 [place] [address] [email or web address] Historical LMR Provider 09/05/17 2 Richelle Cloud MD [address] [address] Historical LMR Provider 09/05/17 Elton Burton MD 14 [facility] [address] [place] [address] Historical LMR Provider 09/05/17 11/22/21 Sherri Yu MD [address] [place] [address] Historical LMR Provider 09/05/17 2 Anna Castillo NP [address] [place] [address] Historical LMR Provider 09/05/17 2 documented as of this encounter Additional Source Comments The information contained in this document represents components of the legal health record. It is not the complete legal health record.[facility]
--- OUTSIDE RECORDS SUMMARY | 2025-09-19 17:43 | XMS_ITS | Encounter Summary ---
Author Organization [facility] Address [address] [facility] [address] [place] [address] Phone Care Team Providers Care Automobile Technician Name Role Phone Josechristina Gage Babcock DO Primary Care Provider [phone] Gage Rivas DO Unavailable Ngoc Wilson NP Unavailable [phone] Richelle Cloud MD Unavailable [phone] Elton Burton MD Unavailable [phone] Sherri Yu MD Unavailable [phone] Anna Castillo NP Unavailable [phone] Reason for Referral * MRI/CAT Scan - Closed Specialty Diagnoses / Procedures Referred By Contcecelia t Referred To Contact Radiology Diagnoses Groin pain, right Leg pain, right Weakness Procedures MRI Lumbar Spine Jess Roman CNP Phone: tel: fax: [email or web address] Referral ID Status Reason Start Date Expiration Date Visits Re quested Visits Authorized [id number] Closed 11/17/2017 11/17/2018 1 1 Encounter Details Date Type Department Care Team (Late st Contact Info) Description 11/17/2017 Ancillary Orders [facility] Department 30 [place] [address] Jess Roman CNP [address] [place] [address] Groin pain, right; Leg pain, right; Weakness Social History Tobacco Use Types Packs/Day Years [...] PM EST Office Visit [facility]astro[facility] 10 [place] [address] Unknown, Unknown, Breanna Lee PA-C [address] [place] [address] [email or web address] documented as of this encounter Results * MRI LUMBAR SPINE (BONE) WITHOUT CONTRAST (12/01/2017 3:11 PM EST) Anatomical Region Laterality Modality L-spine Magnetic Resonan ce 12/01/2017 3:09 PM EST Impressions 12/01/2017 3:21 PM EST Multilevel canal and neural foraminal stenosis as outlined most significant at L3-4 and L4-5 in which there is mild and severe canal stenosis respectively. No large disc herniation or nerve root compression. POS - [id number] Narrative 12/01/2017 3:21 PM EST COMPARISON: CT abdomen pelvis 09/04/2014. No prior MRI lumbar spine. TECHNIQUE: Exam performed on a 1.5 Tati high-field MRI scanner. Sagittal T1, T2 and STIR, axial T1 and T2 sequences were obtained. MRI LUMBAR SPINE FINDINGS: Stable moderate disc space narrowing at L3-4 and L4-5. New grade 1 spondylolisthesis of L4 and stable grade 1 spondylolisthesis of L5. No compression deformities. Multilevel endplate spurring. No bone marrow signal abnormality. Conus terminates at T12-L1. Paraspinal soft tissues are normal. L1-L2: Normal. L2-L3: Disc bulging with mild facet arthropathy and ligamentum flavum hypertrophy. L3-L4: Disc bulging with moderate facet arthropathy and ligamentum flavum hypertrophy causing mild canal stenosis. Moderate right and mild left neural foraminal stenosis due to disc bulging and spurring. L4-L5: Grade 1 spondylolisthesis with disc bulging and severe facet arthropathy and ligamentum flavum hypertrophy causing severe canal stenosis with mild bilateral neural foraminal stenosis due to spurring and disc bulging. L5-S1: Grade 1 spondylolisthesis with disc bulging and severe facet arthropathy. Mild bilateral neural foraminal stenosis due to disc bulging and spurring. Procedure Note Awilda Boggs MD - 12/01/2017 COMPARISON: CT abdomen pelvis 09/04/2014. No prior MRI lumbar spine. TECHNIQUE: Exam performed on a 1.5 Tati high-field MRI scanner. SagittalT1, T2 and STIR, axial T1 and T2 sequences were obtained. MRI LUMBAR SPINE FINDINGS: Stable moderate disc space narrowing at L3-4 and L4-5. New grade 1spondylolisthesis of L4 and stable grade 1 spondylolisthesis of L5. Nocompression deformities. Multilevel endplate spurring. No bone marrowsignal abnormality. Conus terminates at T12-L1. Paraspinal soft tissuesare normal. L1-L2: Normal. L2-L3: Disc bulging with mild facet arthropathy and ligamentum flavumhypertrophy. L3-L4: Disc bulging with moderate facet arthropathy and ligamentum flavumhypertrophy causing mild canal stenosis. Moderate right and mild leftneural foraminal stenosis due to disc bulging and spurring. L4-L5: Grade 1 spondylolisthesis with disc bulging and severe facetarthropathy and ligamentum flavum hypertrophy causing severe canalstenosis with mild bilateral neural foraminal stenosis due to spurring anddisc bulging. L5-S1: Grade 1 spondylolisthesis with disc bulging and severe facetarthropathy. Mild bilateral neural foraminal stenosis due to disc bulgingand spurring. IMPRESSION: Multilevel canal and neural foraminal stenosis as outlined mostsignificant at L3-4 and L4-5 in which there is mild and severe canalstenosis respectively. No large disc herniation or nerve rootcompression. POS - [id number] Jess Roman MIG TIG WELDER IMG MR XSPECIALTY Final Res ult documented in this encounter Visit Diagnoses Diagnosis Groin pain, right Leg pain, right Pain in soft tissues of limb Weakness Other malaise and fatigue Groin pain, right Leg pain, right Pain in soft tissues of limb Weakness Other malaise and fatigue documented in this encounter Care Teams Automobile Technician Relationship Specialty Start Date End Date Gage Rivas DO PCP - General 08/30/17 Gage Rivas DO Historical LMR Provider 09/05/17 Ngoc Wilson NP 21 [place] [address] [email or web address] Historical LMR Provider 09/05/17 2 Richelle Cloud MD [address] [place] [address] Historical LMR Provider 09/05/17 Elton Burton MD 14 [facility] [address] [place] [address] Historical LMR Provider 09/05/17 11/22/21 Sherri Yu MD [address] [place] [address] Historical LMR Provider 09/05/17 2 Anna Castillo NP [address] [place] [address] Historical LMR Provider 09/05/17 2 documented as of this encounter Additional Source Comments The information contained in this document represents components of the legal health record. It is not the complete legal health record.[facility]
--- OUTSIDE RECORDS SUMMARY | 2025-09-19 17:43 | XMS_ITS | Encounter Summary ---
Author Organization [facility] Address [address] [facility] [address] [place] [address] Phone Care Team Providers Care Manager Renewable Energy Name Role Phone JoseGage vasquez Primary Care Provider [phone] Rob Gage Babcock DO Unavailable Ngoc Wilson NEEDLE PUNCH MACHINE OPERATOR HELPER Unavailable Richelle Cloud MD Unavailable [phone] Elton Burton MD Unavailable Sherri Yu MD Unavailable [phone] Anna Castillo NP Unavailable Encounter Details Date Type Department Care Team (Late Contact Info) Description 03/31/2018 Ancillary Orders Virtual Department 30 [place] [address] Wendy Orourke, YUDY [address] [place] [address] [phone] [email or web address] Adnexal tenderness Social History Tobacco Use Types Packs/Day Years [...] Description 10/17/2025 2:15 PM EST Office Visit [facility] [address] [place] [address] Unknown, Unknown, Breanna Lee PA-C [address] [address] [email or web address] documented as of this encounter Visit Diagnoses Diagnosis Adnexal tenderness Unspecified symptom associated with female genital organs documented in this encounter Care Teams Manager Renewable Energy Relationship Specialty Start Date End Date Gage Rivas DO PCP - General 08/30/17 Gage Rivas DO Historical LMR Provider 09/05/17 Ngoc Wilson NP 21 [place] [address] [email or web address] Historical LMR Provider 09/05/17 2 Richelle Cloud MD [address] [place] [address], [address] [place] [address] Historical LMR Provider 09/05/17 Elton Burton MD 14 [facility] [address] [place] [address] Historical LMR Provider 09/05/17 11/22/21 Sherri Yu MD [address] [place] [address] Historical LMR Provider 09/05/172 2 Anna Castillo NP [address] [place] [address] Historical LMR Provider 09/05/172 2 documented as of this encounter Additional Source Comments The information contained in this document represents components of the legal health record. It is not the complete legal health record.[facility]
--- OUTSIDE RECORDS SUMMARY | 2025-09-19 17:43 | XMS_ITS | Encounter Summary ---
Author Organization [facility] Address [address] [facility] [address] [place] [address] Phone Care Team Providers Care Puddler Helper Name Role Phone JoseGage vasquez Primary Care Provider [phone] Gage Rivas DO Unavailable Ngoc Wilson FRENCH FOLDING MACHINE OPERATOR Unavailable Richelle Cloud MD Unavailable Elton Burton MD Unavailable Sherri Yu MD Unavailable [phone] Anna Castillo NP Unavailable Encounter Details Date Type Department Care Team (Late st Contact Info) Description 02/06/2019 Ancillary Orders [address] [address] Pita Mora MD [address] [place] [address] Orthopedics & Sports Medicine, [facility] [place] [address] [email or web address] Hip pain, acute, left Social History Tobacco Use Types Packs/Day Years [...] Upcoming Encounters Date Type Department Care Team ([facility] st Contact Info) Description 10/17/2025 2:15 PM EST Office Visit [facility] 10 [place] [address] Unknown, Unknown, Breanna Lee PA-C [address] [address] documented as of this encounter Visit Diagnoses Diagnosis Hip pain, acute, left documented in this encounter Care Teams Puddler Helper Relationship Specialty Start Date End Date Gage Rivas DO PCP - General 08/30/17 Gage Rivas DO Historical LMR Provider 09/05/17 Ngoc Wilson NP [address] [place] [address] [email or web address] Historical LMR Provider 09/05/17 2 Richelle Cloud MD [address] [place] [address], [address] [place] [address] Historical LMR Provider 09/05/17 Elton Burton MD [address] [place] [address] [address] [place] [address] Historical LMR Provider 09/05/17 11/22/21 Sherri Yu MD [address] [place] [address] Historical LMR Provider 09/05/17 2 Anna Castillo NP [address] [place] [address] Historical LMR Provider 09/05/17 2 documented as of this encounter Additional Source Comments The information contained in this document represents components of the legal health record. It is not the complete legal health record.[facility]
--- OUTSIDE RECORDS SUMMARY | 2025-09-19 17:43 | XMS_ITS | Encounter Summary ---
Author Organization [facility] Address [address] [facility] [address] [place] [address] Phone Care Team Providers Care Marine Oiler Name Role Phone Gage Rivas DO Primary Care Provider [phone] Gage Rivas DO Unavailable Encounter Details Date Type Department Care Team (Late Contact Info) Description 01/21/2022 Procedure Pass [facility], [address] [address] Social History Tobacco Use Types Packs/Day Years [...] 10/17/2025 2:15 PM EST Office Visit [facility] 10 [place] [address] Unknown, Unknown, Breanna Lee PA-C [address] [address] [email or web address] documented as of this encounter Visit Diagnoses Not on filedocumented in this encounter Care Teams Marine Oiler Relationship Specialty Start Date End Date Gage Rivas DO .[employer] PCP - General 08/30/17 JoseGage vasquez DO Historical LMR Provider 09/05/17 documented as of this encounter Additional Source Comments The information contained in this document represents components of the legal health record. It is not the complete legal health record.[facility]
--- OUTSIDE RECORDS SUMMARY | 2025-09-19 17:43 | XMS_ITS | Encounter Summary ---
Author Organization [facility] Address [address] [facility] [address] [place] [address] Phone Care Team Providers Care Project Product Manager Name Role Phone Rob Gage Babcock DO Primary Care Provider [phone] Gage Rivas DO Unavailable Ngoc Wilson NP Unavailable Richelle Cloud MD Unavailable [phone] Elotn Burton MD Unavailable Sherri Yu MD Unavailable [phone] Anna Castillo NP Unavailable [phone] Reason for Referral * MRI/CAT Scan - Closed Specialty Diagnoses / Procedures Referred By Tal t Referred To Contact Radiology Diagnoses Adnexal tenderness Pelvic and perineal pain Procedures MRI Hip (Right) MRI Hip (Right) Wendy Orourke PA Phone: tel: fax: mailto:ann Referral ID Status Reason Start Date Expiration Date Visits Re quested Visits Authorized [id number] Closed 03/31/2018 03/31/2019 1 1 Encounter Details Date Type Department Care Team (Late st Contact Info) Description 04/01/2018 Ancillary Orders Virtual Department [address] [place] [address] Wendy Orourke PA [address] [place] [address] [email or web address] Adnexal tenderness; Pelvic and perineal pain Social History Tobacco Use Types Packs/Day [...] Description 10/17/2025 2:15 PM EST Office Visit [facility] 10 [place] [address] Unknown, Unknown, Breanna Lee PA-C [address] [place] [address] [email or web address] documented as of this encounter Results * MRI HIP WITHOUT CONTRAST (RIGHT) (04/03/2018 1:38 PM EDT) Anatomical Region Laterality Modality Hip Right Magnetic Resonan ce 04/03/2018 1:17 PM EDT Impressions 04/03/2018 1:41 PM EDT 1. Right adductor brevis muscle strain. Right pubic bone bone marrow edema which may be reactive due to pubic symphysis joint arthritis, contusion or stress fracture in the appropriate clinical setting. 2. Chronic small amount of free fluid in the pelvis. POS [id number] Narrative 04/03/2018 1:41 PM EDT COMPARISON: Pelvic x-ray 03/02/2018. TECHNIQUE: Exam performed on a 1.5 Tati high-field MRI scanner. Axial T2, coronal T1, T2 and STIR of both hips, oblique sagittal T1 and T2 of the affected hip sequences were obtained. MRI RIGHT HIP FINDINGS: Musculoskeletal: Hip joint spaces are maintained. No malalignment. No hip joint effusions or hip bone marrow edema. There is moderate bone marrow edema signal in the right pubic bone with mild edema within the adductor brevis muscle. 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 Additional findings: Imaged bladder is normal. Small amount of free fluid in the pelvis unchanged from a CT on 09/04/2014. Uterus and ovaries are not visualized and may be surgically absent. Mild sigmoid colon diverticulosis. No pelvic or inguinal lymphadenopathy. Procedure Note Awilda Boggs MD - 04/03/2018 COMPARISON: Pelvic x-ray 03/02/2018. TECHNIQUE: Exam performed on a 1.5 Tati high-field MRI scanner. AxialT2, coronal T1, T2 and STIR of both hips, oblique sagittal T1 and T2 ofthe affected hip sequences were obtained. MRI RIGHT HIP FINDINGS: Musculoskeletal: Hip joint spaces are maintained. No malalignment. Nohip joint effusions or hip bone marrow edema. There is moderate bonemarrow edema signal in the right pubic bone with mild edema within theadductor brevis muscle. There is stable moderate pubic symphysis jointosteoarthritis with joint space narrowing and spurring. Additional findings: Imaged bladder is normal. Small amount of free fluidin the pelvis unchanged from a CT on 09/04/2014. Uterus and ovaries arenot visualized and may be surgically absent. Mild sigmoid colondiverticulosis. No pelvic or inguinal lymphadenopathy. IMPRESSION: 1. Right adductor brevis muscle strain. Right pubic bone bone marrowedema which may be reactive due to pubic symphysis joint arthritis,contusion or stress fracture in the appropriate clinical setting. 2. Chronic small amount of free fluid in the pelvis. POS [id number] Wendy JIMENES IMG MR EXTREMITY Final Resu lt documented in this encounter Visit Diagnoses Diagnosis Adnexal tenderness Unspecified symptom associated with female genital organs Pelvic and perineal pain Adnexal tenderness Unspecified symptom associated with female genital organs Pelvic and perineal pain documented in this encounter Care Teams Project Product Manager Relationship Specialty Start Date End Date Gage Rivas DO PCP - General 08/30/17 Gage Rivas DO Historical LMR Provider 09/05/17 Ngoc Wilson NP 21 [place] [address] [email or web address] Historical LMR Provider 09/05/17 2 Richelle Cloud MD [address] [address] Historical LMR Provider 09/05/17 Elton Burton MD [address] [address] Historical LMR Provider 09/05/17 11/22/21 Sherri Yu MD [address] [place] [address] Historical LMR Provider 09/05/17 2 Anna Castillo NP [address] [place] [address] Historical LMR Provider 09/05/17 2 documented as of this encounter Additional Source Comments The information contained in this document represents components of the legal health record. It is not the complete legal health record.[facility]
--- OUTSIDE RECORDS SUMMARY | 2025-09-19 17:43 | XMS_ITS | Encounter Summary ---
Author Organization [facility] Address [address] [facility] [address] [place] [address] Phone Care Team Providers Care Network Solutions Architect Name Role Phone Gage Rivas DO Primary Care Provider [phone] Gage Rivas DO Unavailable Ngoc Wilson MICROFILM CLERK Unavailable Richelle Cloud MD Unavailable Elton Burton MD Unavailable Sherri Yu MD Unavailable [phone] Anna Castillo NP Unavailable Encounter Details Date Type Department Care Team (Late Contact Info) Description 04/19/2018 Ancillary Orders Virtual Department 30 [place] [address] Gage Rivas DO [address] [place] [place] [address] Breast screening Social History Tobacco Use Types Packs/Day Years [...] Visit [facility] 10 [place] [address] Unknown, Unknown, Breanna Lee PA-C 10 [facility] 2 [place] [address] [email or web address] documented as of this encounter Results * BI MAMMOGRAM SCREENING WITH TOMOSYNTHESIS WITH CAD (BILATERAL) (05/26/2018 2:34 PM EDT) Anatomical Region Laterality Modality Breast Left, Breast Right, Breast Bilateral Bila teral Mammography 05/26/2018 4:33 PM EDT Impressions 05/26/2018 4:36 PM EDT No mammographic evidence of malignancy. BI-RADS CATEGORY: 1 - Negative. DENSITY: There are scattered fibroglandular densities. POS - [id number] Narrative 05/26/2018 4:36 PM EDT Standard digital full-field 2-D C view and two-plane tomographic imaging was performed and compared with multiple prior studies, most recently 05/25/2017, with utilization of computer-aided detection. The breasts are composed of scattered fibroglandular densities. The stromal markings are essentially unchanged in overall appearance and distribution. No dominant spiculated mass, suspicious clustered microcalcifications, or focal zone of pathologic skin thickening or retraction are noted to have arisen in the interim. Procedure Note Luis Olson MD - 05/26/2018 Standard digital full-field 2-D C view and two-plane tomographic imagingwas performed and compared with multiple prior studies, most [id number]/11/2017, with utilization of computer-aided detection. The breasts are composed of scattered fibroglandular densities. Thestromal markings are essentially unchanged in overall appearance anddistribution. No dominant spiculated mass, suspicious clusteredmicrocalcifications, or focal zone of pathologic skin thickening orretraction are noted to have arisen in the interim. IMPRESSION: No mammographic evidence of malignancy. BI-RADS CATEGORY: 1 - Negative. DENSITY: There are scattered fibroglandular densities. POS - [id number] us Gage Rivas DO IMG MG EXAMS Final Result documented in this encounter Visit Diagnoses Diagnosis Breast screening Breast screening, unspecified Breast screening Breast screening, unspecified documented in this encounter Care Teams Network Solutions Architect Relationship Specialty Start Date End Date Gage Rivas DO PCP - General 08/30/17 JosechristinaGageDO Historical LMR Provider 09/05/17 Ngoc Wilson NP 21 [place] [address] [email or web address] Historical LMR Provider 09/05/17 2 Richelle Cloud MD [address] [place] [address] Historical LMR Provider 09/05/17 Elton Burton MD 14 [facility] [address] [place] [address] Historical LMR Provider 09/05/17 11/22/21 Sherri Yu MD [address] [address] Historical LMR Provider 09/05/17 2 Anna Castillo NP [address] [place] [address] Historical LMR Provider 09/05/17 2 documented as of this encounter Additional Source Comments The information contained in this document represents components of the legal health record. It is not the complete legal health record.[facility]
--- OUTSIDE RECORDS SUMMARY | 2025-09-19 17:43 | XMS_ITS | Encounter Summary ---
Author Organization [facility] Address [address] [facility] [address] [place] [address] Phone Care Team Providers Care Spinner Tender Name Role Phone JoseGage vasquez Primary Care Provider [phone] Gage Rivas DO Unavailable Ngoc Wilson SMALL ENGINE SPECIALIST Unavailable Richelle Cloud MD Unavailable [phone] Elton Burton MD Unavailable [phone] Sherri Yu MD Unavailable [phone] Anna Castillo NP Unavailable Encounter Details Date Type Department Care Team (Late st Contact Info) Description 02/06/2019 Ancillary Orders [address] [address] Pita Mora MD [address] [place] [address] Orthopedics & Sports Medicine, [facility] [place] [address] [email or web address] Hip pain, right Social History Tobacco Use [...] 10/17/2025 2:15 PM EST Office Visit [facility] 10 [place] [address] Unknown, Unknown, Breanna Lee PA-C [address] [address] [email or web address] Pending Results Name Type Priority Associated Diagnoses Date /Time FL Guidance Needle Placement Non-Spine Imaging Routine Hip pain, right 02/07/2019 7:52 AM EDT Scheduled Orders Name Type Priority Associated Diagnoses Orde r Schedule FL Guidance Needle Placement Non-Spine Imaging Routine Hip pain, right 1 Occurrences starting 02/06/2019 until 05/09/2019 documented as of this encounter Visit Diagnoses Diagnosis Hip pain, right Pain in joint, pelvic region and thigh documented in this encounter Care Teams Spinner Tender Relationship Specialty Start Date End Date Gage Rivas DO PCP - General 08/30/17 Gage Rivas DO Historical LMR Provider 09/05/17 Ngoc Wilson NP [address] [place] [address] [email or web address] Historical LMR Provider 09/05/17 2 Richelle Cloud MD [address] [place] [address], 2nd [place] [address] Historical LMR Provider 09/05/17 Elton Burton MD 14 [facility] [address] [place] [address] [email or web address] Historical LMR Provider 09/05/17 11/22/21 Sherri Yu MD [address] [place] [address] Historical LMR Provider 09/05/17 2 Anna Castillo NP [address] [place] [address] Historical LMR Provider 09/05/17 2 documented as of this encounter Additional Source Comments The information contained in this document represents components of the legal health record. It is not the complete legal health record.[facility]
--- OUTSIDE RECORDS SUMMARY | 2025-09-19 17:43 | XMS_ITS | Encounter Summary ---
Author Organization [facility] Address [address] [facility] [address] [place] [address] Phone Care Team Providers Care Public Area Attendant Name Role Phone JoseGage vasquez Primary Care Provider [phone] Rob Gage Babcock DO Unavailable Ngoc Wilson FIRE EXTINGUISHER TESTER Unavailable Richelle Cloud MD Unavailable [phone] Elton Burton MD Unavailable Sherri Yu MD Unavailable [phone] Anna Castillo NP Unavailable [phone] Encounter Details Date Type Department Care Team (Late st Contact Info) Description 02/06/2019 Ancillary Orders [facility] Orthopedics & Sports Medicine [address] [place] [address] Pita Mora MD [address] [place] [address] Orthopedics & Sports Medicine, [facility] [place] [address] [email or web address] Social History Tobacco Use Types Packs/Day Years [...] Upcoming Encounters Date Type Department Care Team ([facility] st Contact Info) Description 10/17/2025 2:15 PM EST Office Visit [facility] 10 [place] [address] Unknown, Unknown, Breanna Lee PA-C [address] [address] documented as of this encounter Visit Diagnoses Not on filedocumented in this encounter Care Teams Public Area Attendant Relationship Specialty Start Date End Date Gage Rivas DO PCP - General 08/30/17 Gage Rivas DO Historical LMR Provider 09/05/17 Ngoc Wilson NP [address] [place] [address] [email or web address] Historical LMR Provider 09/05/17 2 Richelle Cloud MD [address] [place] [address] Historical LMR Provider 09/05/17 Elton Burton MD [address] [place] [address] Historical LMR Provider 09/05/17 11/22/21 Sherri Yu MD [address] [place] [address] Historical LMR Provider 09/05/17 2 Anna Castillo NP [address] [place] [address] Historical LMR Provider 09/05/17 2 documented as of this encounter Additional Source Comments The information contained in this document represents components of the legal health record. It is not the complete legal health record.[facility]
--- OUTSIDE RECORDS SUMMARY | 2025-09-19 17:43 | XMS_ITS | Encounter Summary ---
Author Organization [facility] Address [address] [facility] [address] [place] [address] Phone Care Team Providers Care Broaching Machine Operator Name Role Phone Gage Rivas DO Primary Care Provider [phone] Gage Rivas DO Unavailable Encounter Details Date Type Department Care Team (Late st Contact Info) Description 04/21/2024 Transcribe Orders Virtual Department [address] [place] [address] Gage Rivas DO [address] [facility] [place] [address] [place] [address] [email or web address] Social History Tobacco Use Types Packs/Day Years [...] 10/17/2025 2:15 PM EST Office Visit [facility] Gastro[facility] Clinic [address] [place] [address] Unknown, Unknown, Breanna Lee PA-C [address] [place] [address] documented as of this encounter Visit Diagnoses Not on filedocumented in this encounter Care Teams Broaching Machine Operator Relationship Specialty Start Date End Date Gage Rivas DO [email or web address] PCP - General 08/30/17 Gage Rivas DO [email or web address] Historical LMR Provider 09/05/17 documented as of this encounter Additional Source Comments The information contained in this document represents components of the legal health record. It is not the complete legal health record.[facility]
--- OUTSIDE RECORDS SUMMARY | 2025-09-19 17:43 | XMS_ITS | Encounter Summary ---
Author Organization [facility] Address [address] [facility] [address] [place] [address] Phone Care Team Providers Care Healthcare Administration Intern Name Role Phone Josechristina Gage Babcock DO Primary Care Provider [phone] Gage Rivas DO Unavailable Ngoc Wilson NP Unavailable Richelle Cloud MD Unavailable Elton Burton MD Unavailable Sherri Yu MD Unavailable [phone] Anna Castillo NP Unavailable Encounter Details Date Type Department Care Team (Late st Contact Info) Description 03/31/2018 Procedure Pass [facility], [address] [address] Social History Tobacco Use Types Packs/Day Years [...] - - Weight 68 kg (150 lb) 04/03/2018 12:30 PM EDT Height 154.9 cm (5' 1 ) 04/03/2018 12:30 PM EDT Body Mass Index 28.34 04/03/2018 12:30 PM EDT documented in this encounter Plan of Treatment Upcoming Encounters Date Type Department Care Team (Late st Contact Info) Description 10/17/2025 2:15 PM EST Office Visit [facility] 10 [place] [address] Unknown, Unknown, Breanna Lee PA-C [address] [address] documented as of this encounter Visit Diagnoses Not on filedocumented in this encounter Care Teams Healthcare Administration Intern Relationship Specialty Start Date End Date Gage Rivas DO PCP - General 08/30/17 Gage Rivas DO Historical LMR Provider 09/05/17 Ngoc Wilson NP [address] [place] [address] [email or web address] Historical LMR Provider 09/05/17 2 Richelle Cloud MD [address] [place] [address], [address] [place] [address] Historical LMR Provider 09/05/17 Elton Burton MD [address] [place] [address] [place] [address] Historical LMR Provider 09/05/17 11/22/21 Sherri Yu MD [address] [place] [address] Historical LMR Provider 09/05/17 2 Anna Castillo NP [address] [place] [address] Historical LMR Provider 09/05/17 2 documented as of this encounter Additional Source Comments The information contained in this document represents components of the legal health record. It is not the complete legal health record.[facility]
--- OUTSIDE RECORDS SUMMARY | 2025-09-19 17:44 | XMS_ITS | Encounter Summary ---
Author Organization [facility] Address [address] [place] [address] Phone Care Team Providers Care Cereal Popper Name Role Phone Gage Rivas Primary Care Provider [phone] Rob Gage Babcock DO Unavailable Ngoc Wilson SENIOR NETWORK ARCHITECT Unavailable [phone] Richelle Cloud MD Unavailable [phone] Elton Burton MD Unavailable Sherri Yu MD Unavailable [phone] Anna Castillo NP Unavailable [phone] Encounter Details Date Type Department Care Team (Latest Contact Info) Description 03/27/2019 Transcribe Orders [address] [address] Tony Marcano MD [address] [place] [address], [address] [place], [place] [id number] [email or web address] 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, unspecified laterality (Primary Dx) Social History Tobacco [...] Upcoming Encounters Date Type Department Care Team ([facility] st Contact Info) Description 10/17/2025 2:15 PM EST Office Visit [facility] [address] [place] [address] Unknown, Unknown, Breanna Lee PA-C [address] [address] [email or web address] documented as of this encounter Results * (ABNORMAL) Basic metabolic panel (03/29/2019 10:40 AM EDT) SODIUM 137 133 - 146 mmol/L [facility] CHLORIDE 97 96 - 108 mmol/L [facility] POTASSIUM 4.6 3.3 - 5.1 mmol/L [facility] CO2 28 21 - 35 mmol/L [facility] BUN 27(H) 6 - 19 mg/dL [facility] CREATININE 1.30 0.5 - 1.5 mg/dL [facility] GLUCOSE 165(H) 70 - 99 mg/dL [facility] CALCIUM 10.4(H) 8.4 - 10.3 mg/dL [facility] EGFR 42(L) >59 mL/min/1.7 3m2 [facility] Comment:If patient is black, multiply result by 1.159. Estimated glomerular filtration rate calculated using the CKD-EPI equation. 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, unspecified laterality- Primary documented in this encounter Care Teams Cereal Popper Relationship Specialty Start Date End Date Gage Rivas DO PCP - General 08/30/17 JoseGage vasquez Historical LMR Provider 09/05/17 Ngoc Wilson, ANDREW [address] [place] [address] [email or web address] Historical LMR Provider 09/05/17 2 Richelle Cloud MD [address] [address] Historical LMR Provider 09/05/17 Elton Burton MD [address] [address] Historical LMR Provider 09/05/17 11/22/21 Sherri Yu MD [address] [place] [address] Historical LMR Provider 09/05/17 2 Anna Castillo NP [address] [place] [address] Historical LMR Provider 09/05/17 2 documented as of this encounter Additional Source Comments The information contained in this document represents components of the legal health record. It is not the complete legal health record.[facility]
--- OUTSIDE RECORDS SUMMARY | 2025-09-19 17:44 | XMS_ITS | Encounter Summary ---
Author Organization [facility] Address [address] [place] [address] Phone Care Team Providers Care Tipple Oiler Name Role Phone JoseGage vasquez Primary Care Provider [phone] Rob Gage Babcock DO Unavailable Ngoc Wilson PICKLE MAKER Unavailable Richelle Cloud MD Unavailable [phone] Elton Burton MD Unavailable Sherri Yu MD Unavailable [phone] Anna Castillo NP Unavailable [phone] Encounter Details Date Type Department Care Team (Latest Contact Info) Description 08/14/2019 Ancillary Orders [address] [address] Pita Mora MD [address] [place] [address] Orthopedics & Sports Medicine, [place] [address] [email or web address] Osteoarthritis of right hip, unspecified osteoarthritis type Social History Tobacco Use Types Packs/Day Years [...] Upcoming Encounters Date Type Department Care Team ([facility] st Contact Info) Description 10/17/2025 2:15 PM EST Office Visit [facility] [address] [place] [address] Unknown, Unknown, Breanna Lee PA-C [address] [address] documented as of this encounter Visit Diagnoses Diagnosis Osteoarthritis of right hip, unspecified osteoarthritis type documented in this encounter Care Teams Tipple Oiler Relationship Specialty Start Date End Date Gage Rivas DO PCP - General 08/30/17 Gage Rivas DO Historical LMR Provider 09/05/17 Ngoc Wilson NP [address] [place] [address] [email or web address] Historical LMR Provider 09/05/17 2 Richelle Cloud MD [address] [place] [address] Historical LMR Provider 09/05/17 Elton Burton MD [address] [place] [address] [place] [address] Historical LMR Provider 09/05/17 11/22/21 Sherri Yu MD [address] [place] [id number] Historical LMR Provider 09/05/17 2 Anna Castillo NP [address] [place] [address] Historical LMR Provider 09/05/17 2 documented as of this encounter Additional Source Comments The information contained in this document represents components of the legal health record. It is not the complete legal health record.[facility]
--- OUTSIDE RECORDS SUMMARY | 2025-09-19 17:44 | XMS_ITS | Encounter Summary ---
Author Organization [facility] Address [address] [place] [address] Phone Care Team Providers Care Signal Tower Director Name Role Phone JoseGage vasquez Primary Care Provider [phone] Rob Gage Babcock DO Unavailable Ngoc Wilson BELLPERSON Unavailable Richelle Cloud MD Unavailable [phone] Elton Burton MD Unavailable Sherri Yu MD Unavailable [phone] Anna Castillo NP Unavailable [phone] Encounter Details Date Type Department Care Team (Late st Contact Info) Description 08/14/2019 Ancillary Orders [facility] Orth[facility]ics [facility] [address] [place] [address] Pita Mora MD [address] [place] [address] Orthopedics & Sports Medicine, [facility] [place] [address] [email or web address] Social History Tobacco Use Types Packs/Day Years [...] Upcoming Encounters Date Type Department Care Team ([facility] st Contact Info) Description 10/17/2025 2:15 PM EST Office Visit [facility] [address] [place] [address] Unknown, Unknown, Breanna Lee PA-C [address] [address] documented as of this encounter Visit Diagnoses Not on filedocumented in this encounter Care Teams Signal Tower Director Relationship Specialty Start Date End Date Gage Rivas DO PCP - General 08/30/17 Gage Rivas DO Historical LMR Provider 09/05/17 Ngoc Wilson NP [address] [place] [address] [email or web address] Historical LMR Provider 09/05/17 2 Richelle Cloud MD [address] [place] [address] Historical LMR Provider 09/05/17 Elton Burton MD [address] [place] [address] Historical LMR Provider 09/05/17 11/22/21 Sherri Yu MD [address] [place] [address] Historical LMR Provider 09/05/17 2 Anna Castillo NP [address] [place] [address] Historical LMR Provider 09/05/17 2 documented as of this encounter Additional Source Comments The information contained in this document represents components of the legal health record. It is not the complete legal health record.[facility]
--- OUTSIDE RECORDS SUMMARY | 2025-09-19 17:44 | XMS_ITS | Encounter Summary ---
Author Organization [facility] Address [address] [place] [address] Phone Care Team Providers Care Social Welfare Research Worker Name Role Phone JoseGage vasquez Yoko PIERRE Primary Care Provider [phone] Gage Rivsa DO Unavailable Ngoc Wilson SALES OPERATIONS ANALYST Unavailable Richelle Cloud MD Unavailable Elton Burton MD Unavailable [phone] Sherri Yu MD Unavailable [phone] Anna Castillo NP Unavailable Encounter Details Date Type Department Care Team (Late st Contact Info) Description 01/04/2019 Ancillary Orders [facility], X-Ray - [address] [address] Jess Roman, RV MECHANIC [address] [place] [address] [email or web address] Pain in joint of right hip Social History Tobacco Use Types Packs/Day Years [...] Description 10/17/2025 2:15 PM EST Office Visit [facility] [address] [place] [address] Unknown, Unknown, Breanna Lee PA-C [address] [facility] [address] [place] [address] [email or web address] documented as of this encounter Results * XR PELVIS 1 VIEW (01/04/2019 5:10 PM EST) Anatomical Region Laterality Modality Pelvis Radiographic Kelin ging 01/04/2019 5:21 PM EST Impressions 01/04/2019 5:23 PM EST No acute bony pathology nor significant hip arthritis.. POS [id number] Narrative 01/04/2019 5:23 PM EST AP pelvis, single view Compare 03/02/2018. No fracture or dislocation. No evidence of tumor, infection, AVN or impingement. Chronic sclerosis around the symphysis pubis suggests benign osteitis pubis SI joints unremarkable. No significant arthritic changes. Many phleboliths but no significant soft tissue calcifications. Procedure Note Seamus Vásquez MD - 01/04/2019 AP pelvis, single view Compare 03/02/2018. No fracture or dislocation. No evidence of tumor, infection, AVN or impingement. Chronic sclerosis around the symphysis pubis suggests benign osteitispubis SI joints unremarkable. No significant arthritic changes. Many phleboliths but no significant soft tissue calcifications. IMPRESSION: No acute bony pathology nor significant hip arthritis.. POS [id number] us Jess Roman RV MECHANIC IMG XR PELVIS Final Resul t documented in this encounter Visit Diagnoses Diagnosis Pain in joint of right hip Pain in joint of right hip documented in this encounter Care Teams Social Welfare Research Worker Relationship Specialty Start Date End Date Gage Rivas DO PCP - General 08/30/17 Gage Rivas DO Historical LMR Provider 09/05/17 Ngoc Wilson NP [address] [place] [address] [email or web address] Historical LMR Provider 09/05/17 2 Richelle Colud MD [address] [address] Historical LMR Provider 09/05/17 Elton Burton MD [address] [facility] [address] [place] [address] Historical LMR Provider 09/05/17 11/22/21 Sherri Yu MD [address] [place] [address] Historical LMR Provider 09/05/17 2 Anna Castillo NP [address] [place] [address] Historical LMR Provider 09/05/17 2 documented as of this encounter Additional Source Comments The information contained in this document represents components of the legal health record. It is not the complete legal health record.[facility]
[2025-09-19 18:34] LABS: Hemoglobin A1C 205.3467 umol/L; Total Hemoglobin (HGBA1C) 2939.1692 umol/L
== END 2025-09-19 14:33 | disposition home or self-care (01) ==
LOC: HO.MANLDS 14:32
PROVIDERS: Visit Provider Internal Medicine
DX: E11.9 Type 2 diabetes mellitus without complications (principal)
CPT/HCPCS: 36415; 83036